=== PATIENT | male | born 1950 | race Caucasian/White ===

== ENCOUNTER 2017-03-20 11:10 | Observation (INO) | payer MEDICARE ==
[~2017-03-20] VITALS: Ht 182.9 cm; Wt 93.6 kg
[~2017-03-20 11:10] MED LIST: ASPI-1009 PO; ASPI-1265 PO; COLC0.6T66 PO; DIGO250T PO; ISOS30TA9 PO; METO-539 PO; OMEG1CAP54 PO; SOTA80TA69 PO; TICA90TA PO; VITA400T10 PO; [UNRECOGNIZED DRUG - CODE] PO
[2017-03-20] MEDS ORDERED: normal saline 1000ML IV soln IVB ONE (12:00)
[2017-03-20 12:12] LABS: BASOPHILS # (AUTO) 0.1 X10'3 (0-0.2); BASOPHILS % (AUTO) 0.9 % (0-1); EOSINOPHILS # (AUTO) 0.1 X10'3 (0-0.9); EOSINOPHILS % (AUTO) 1.5 % (0-6); HEMATOCRIT 49.3 % (42.0-52.0); HEMOGLOBIN 16.9 g/dl (14.0-17.9); LYMPHOCYTES # (AUTO) 2.9 X10'3 (1.1-4.8); LYMPHOCYTES % (AUTO) 36.6 % (21-51); MEAN CORPUSCULAR HEMOGLOBIN 32.7 PG (27.0-31.0); MEAN CORPUSCULAR HGB CONC 34.3 % (33.0-36.5); MEAN CORPUSCULAR VOLUME 95.1 FL (78-98); MEAN PLATELET VOLUME 8.9 FL (7.4-10.4); MONOCYTES # (AUTO) 0.8 X10'3 (0-0.9); MONOCYTES % (AUTO) 10.4 % (2-12); NEUTROPHILS % (AUTO) 50.6 % (42-75); PLATELET COUNT 236 X10'3 (140-440); RED BLOOD COUNT 5.18 X10'6 (4.70-6.10); RED CELL DISTRIBUTION WIDTH 13.8 % (11.5-14.5); WHITE BLOOD COUNT 7.9 X10'3 (4.5-11.0)
[2017-03-20 12:13] LABS: CLARITY,URINE Clear (Clear); COLOR,URINE Yellow (Yellow); GLUCOSE, URINE 500 mg/dl (Neg); KETONES,URINE Negative (Neg); LEUKOCYTE ESTERASE ,URINE Negative (Neg); NITRITES, URINE Negative (Neg); OCCULT BLOOD,URINE Negative (Neg); PROTEIN,URINE Negative (Neg); UA COLLECTION TYPE CLN CATCH MIDSTREAM; UROBILINOGEN,URINE 0.2 E.U/dL (0.2-1.0)
[2017-03-20 12:17] LABS: PARTIAL THROMBOPLASTIN TIME 26 SECONDS (22-32); PROTHROMBIN TIME 10.3 SECONDS (9.0-12.0)
[2017-03-20 12:29] LABS: ALANINE AMINOTRANSFERASE 92 U/L (12-78); ALBUMIN 4.1 G/DL (3.4-5.0); ALBUMIN/GLOBULIN RATIO 1.1 (1.1-1.5); ALKALINE PHOSPHATASE 58 IU/L (46-116); ANION GAP 14 (8-16); ASPARTATE AMINO TRANSFERASE 42 U/L (10-37); BILIRUBIN,TOTAL 1.3 MG/DL (0.1-1.0); BLOOD UREA NITROGEN 21 MG/DL (7-18); BUN/CREATININE RATIO 23.3 (5.4-32.0); CHLORIDE 103 MMOL/L (99-107); GLUCOSE 178 MG/DL (70-104); MAGNESIUM 1.9 MG/DL (1.5-2.4); SODIUM 138 MMOL/L (135-145); TOTAL CARBON DIOXIDE 21.4 MMOL/L (24-32); eGFR 85 ML/MIN
[2017-03-20 12:30] LABS: POTASSIUM 3.9 MMOL/L (3.5-5.1)
[2017-03-20 12:57] LABS: LIPASE 491 U/L (73-393)
[2017-03-20] MEDS ORDERED: glucagon, human recombinant 1mg kit SUBCUT PRN (14:50)
[2017-03-20] MEDS ORDERED: MESSAGE TO PHARMACY PO ONE (14:50)
[2017-03-20] MEDS ORDERED: dextrose 50%-water 50ml dispensing syringe IV PRN ×2 (14:50)
[2017-03-20] MEDS ORDERED: mag hydrox/Alum hydrox/simeth 30ml oral suspension PO PRN (14:50)
[2017-03-20] MEDS ORDERED: potassium Cl 40MEQ/NS 500ml 500 ML IV PRN ×2 (14:50)
[2017-03-20] MEDS ORDERED: magnesium 4gm in 100ml NS 100 ML IV PRN (14:50)
[2017-03-20] MEDS ORDERED: magnesium 2GM in 50ml NS 50 ML IV PRN (14:50)
[2017-03-20] MEDS ORDERED: magnesium hydroxide 30ml (MOM) UD suspension PO PRN (14:50)
[2017-03-20] MEDS ORDERED: acetaminophen 325mg tablet PO PRN (14:50)
[2017-03-20] MEDS ORDERED: insulin Lispro (HumaLOG) vial - multi-dose SQ SCH (14:50)
[2017-03-20] MEDS ORDERED: potassium Cl 20 mEq SR tablet PO PRN ×2 (14:50)
[2017-03-20] MEDS ORDERED: dextrose ORAL solution 15 GM/59 ML bottle PO PRN ×2 (14:50)
[2017-03-20] MEDS ORDERED: ondansetron/PF 4mg/2ml inj IV PRN (14:50)
[2017-03-20 16:55] VITALS: BP 134/91
[2017-03-20 19:00] VITALS: BP 118/72
[2017-03-20] MEDS ORDERED: ticagrelor 90mg tablet PO SCH (21:00)
[2017-03-20] MEDS ORDERED: allopurinol 100mg tablet PO SCH (21:00)
[2017-03-20] MEDS ORDERED: sotalol 80mg tablet PO SCH (21:00)
[2017-03-21] VITALS: BP 118/72
[2017-03-21] MEDS ORDERED: DIGO250T PO (00:54)
[2017-03-21] MEDS ORDERED: ALLO100T PO (00:54)
[2017-03-21] MEDS ORDERED: LOSA25TA96 PO (00:54)
[2017-03-21] MEDS ORDERED: METF500T PO (00:54)
[2017-03-21] MEDS ORDERED: LEVO50TA8 PO (00:54)
[2017-03-21 05:29] LABS: BASOPHILS % (AUTO) 0.5 % (0-1); EOSINOPHILS # (AUTO) 0.1 X10'3 (0-0.9); EOSINOPHILS % (AUTO) 1.7 % (0-6); HEMOGLOBIN 15.4 g/dl (14.0-17.9); LYMPHOCYTES # (AUTO) 3.3 X10'3 (1.1-4.8); LYMPHOCYTES % (AUTO) 40.8 % (21-51); MEAN CORPUSCULAR HEMOGLOBIN 33.3 PG (27.0-31.0); MEAN CORPUSCULAR HGB CONC 34.3 % (33.0-36.5); MEAN PLATELET VOLUME 8.8 FL (7.4-10.4); MONOCYTES # (AUTO) 0.8 X10'3 (0-0.9); MONOCYTES % (AUTO) 9.7 % (2-12); NEUTROPHILS # (AUTO) 3.8 X10'3 (1.8-7.7); NEUTROPHILS % (AUTO) 47.3 % (42-75); PLATELET COUNT 195 X10'3 (140-440); RED BLOOD COUNT 4.64 X10'6 (4.70-6.10); WHITE BLOOD COUNT 8.1 X10'3 (4.5-11.0)
[2017-03-21 06:26] LABS: ALBUMIN 3.5 G/DL (3.4-5.0); ANION GAP 12 (8-16); BLOOD UREA NITROGEN 20 MG/DL (7-18); CALCIUM 8.6 MG/DL (8.5-10.1); CHLORIDE 104 MMOL/L (99-107); GLUCOSE 154 MG/DL (70-104); MAGNESIUM 1.9 MG/DL (1.5-2.4); SODIUM 141 MMOL/L (135-145); TOTAL CARBON DIOXIDE 24.7 MMOL/L (24-32); eGFR 75 ML/MIN
[2017-03-21 06:34] LABS: POTASSIUM 3.6 MMOL/L (3.5-5.1)
[2017-03-21 07:00] VITALS: BP 124/85
[2017-03-21] MEDS ORDERED: enoxaparin 40mg/0.4ml syringe SUBCUT SCH (08:00)
[2017-03-21] MEDS ORDERED: K and/or MAG REPLACEMENT MC SCH (08:00)
[2017-03-21 11:21] VITALS: BP 123/75
[2017-03-21] MEDS ORDERED: metFORMIN 500mg tablet PO SCH (17:00)
[2017-03-21] MEDS ORDERED: sotalol 80mg tablet PO SCH (20:00)
[2017-03-21] MEDS ORDERED: allopurinol 100mg tablet PO SCH (20:00)
[2017-03-21] MEDS ORDERED: ticagrelor 90mg tablet PO SCH (20:00)
[2017-03-22] MEDS ORDERED: levoTHYROXINE 25mcg tablet PO SCH (07:00)
[2017-03-22] MEDS ORDERED: losartan 25mg tablet PO SCH (08:00)
[2017-03-22] MEDS ORDERED: vitamin E 400 unit capsule PO SCH (08:00)
[2017-03-22] MEDS ORDERED: digoxin 250mcg (0.25mg) tablet PO SCH (08:00)
[2017-03-22] MEDS ORDERED: aspirin 81mg tablet.DR PO SCH (08:00)
[2017-03-22] MEDS ORDERED: metoprolol succinate 25mg (24-HOUR) SR. Tablet PO SCH (08:00)
[2017-03-22] MEDS ORDERED: colchicine 0.6mg tablet PO SCH (08:00)
== END 2017-03-21 14:55 | disposition home or self-care (01) ==
LOC: ER 11:10 → INTOOBSV 14:47 → ED HOLD 14:47 → MED 3N 16:21
PROVIDERS: ADMIT Internal Medicine; ATTEND Internal Medicine
DX: R07.89 Other chest pain (principal); M10.9 Gout, unspecified; I10 Essential (primary) hypertension; R10.13 Epigastric pain; E11.9 Type 2 diabetes mellitus without complications; I25.709 Atherosclerosis of coronary artery bypass graft(s), unspecified, with unspecified angina pectoris; E78.00 Pure hypercholesterolemia, unspecified; M19.90 Unspecified osteoarthritis, unspecified site; I25.2 Old myocardial infarction; I48.0 Paroxysmal atrial fibrillation; E78.5 Hyperlipidemia, unspecified; Z95.5 Presence of coronary angioplasty implant and graft; Z82.49 Family history of ischemic heart disease and other diseases of the circulatory system
CPT/HCPCS: 36415; 71045; 76700; 80048; 80053; 80162; 81003; 82948; 83036; 83690; 83735; 83874; 83880; 84484; 85025; 85610; 85730; 87070; 93005; 93306; G0378; J7030; 96360; 99285

== ENCOUNTER 2017-04-26 14:28 | Inpatient (IN) | payer MEDICARE ==
[~2017-04-26] VITALS: Ht 185.4 cm; Wt 93.4 kg
[~2017-04-26 14:28] MED LIST changes: +ALLO100T PO; -ASPI-1265 PO; -ISOS30TA9 PO; +LEVO50TA8 PO; +LOSA25TA96 PO; +METF500T PO
[2017-04-26 15:19] LABS: BASOPHILS # (AUTO) 0.1 X10'3 (0-0.2); BASOPHILS % (AUTO) 0.7 % (0-1); EOSINOPHILS # (AUTO) 0.1 X10'3 (0-0.9); EOSINOPHILS % (AUTO) 1.5 % (0-6); HEMATOCRIT 44.3 % (42.0-52.0); HEMOGLOBIN 15.6 g/dl (14.0-17.9); LYMPHOCYTES % (AUTO) 38.6 % (21-51); MEAN CORPUSCULAR HEMOGLOBIN 33.5 PG (27.0-31.0); MEAN CORPUSCULAR HGB CONC 35.2 % (33.0-36.5); MEAN CORPUSCULAR VOLUME 95.1 FL (78-98); MONOCYTES # (AUTO) 0.8 X10'3 (0-0.9); NEUTROPHILS # (AUTO) 3.8 X10'3 (1.8-7.7); NEUTROPHILS % (AUTO) 49.2 % (42-75); PLATELET COUNT 212 X10'3 (140-440); RED BLOOD COUNT 4.66 X10'6 (4.70-6.10); RED CELL DISTRIBUTION WIDTH 14.4 % (11.5-14.5); WHITE BLOOD COUNT 7.8 X10'3 (4.5-11.0)
[2017-04-26 15:21] LABS: PARTIAL THROMBOPLASTIN TIME 26 SECONDS (22-32); PROTHROMBIN TIME 10.4 SECONDS (9.0-12.0)
[2017-04-26 15:24] LABS: CLARITY,URINE Clear (Clear); COLOR,URINE Yellow (Yellow); GLUCOSE, URINE Negative (Neg); KETONES,URINE Negative (Neg); LEUKOCYTE ESTERASE ,URINE Negative (Neg); NITRITES, URINE Negative (Neg); OCCULT BLOOD,URINE Negative (Neg); PH,URINE 6.5 (4.8-8.0); PROTEIN,URINE Negative (Neg); UROBILINOGEN,URINE 0.2 E.U/dL (0.2-1.0)
[2017-04-26 15:28] LABS: UA COLLECTION TYPE CLN CATCH MIDSTREAM
[2017-04-26 15:34] LABS: ALANINE AMINOTRANSFERASE 67 U/L (12-78); ALBUMIN 4.1 G/DL (3.4-5.0); ALBUMIN/GLOBULIN RATIO 1.2 (1.1-1.5); ALKALINE PHOSPHATASE 58 IU/L (46-116); ANION GAP 13 (8-16); BILIRUBIN,TOTAL 1.4 MG/DL (0.1-1.0); BLOOD UREA NITROGEN 19 MG/DL (7-18); CALCIUM 9.3 MG/DL (8.5-10.1); CHLORIDE 103 MMOL/L (99-107); SODIUM 140 MMOL/L (135-145); TOTAL CARBON DIOXIDE 23.8 MMOL/L (24-32); TOTAL PROTEIN 7.6 G/DL (6.4-8.2); eGFR 75 ML/MIN
[2017-04-26 15:37] LABS: GLUCOSE 121 MG/DL (70-104); POTASSIUM 3.8 MMOL/L (3.5-5.1)
[2017-04-26 15:44] LABS: ASPARTATE AMINO TRANSFERASE 26 U/L (10-37)
[2017-04-26] MEDS ORDERED: temazepam 15mg capsule PO PRN (21:00)
[2017-04-26] MEDS ORDERED: normal saline 1000ml 1,000 ML IV SCH (21:03)
[2017-04-26] MEDS ORDERED: metoclopramide 5 mg/ml inj IV PRN (21:05)
[2017-04-26] MEDS ORDERED: magnesium hydroxide 30ml (MOM) UD suspension PO PRN (21:05)
[2017-04-26] MEDS ORDERED: morphine 2 MG/ML inj. syringe IV PRN ×2 (21:05)
[2017-04-26] MEDS ORDERED: acetaminophen 650mg rectal suppository RC PRN (21:05)
[2017-04-26] MEDS ORDERED: diphenhydrAMINE 25mg capsule PO PRN (21:05)
[2017-04-26] MEDS ORDERED: bisacodyl 10mg suppository rectal RC PRN (21:05)
[2017-04-26] MEDS ORDERED: diphenhydrAMINE 50 mg/ml inj IV PRN (21:05)
[2017-04-26] MEDS ORDERED: HYDROmorphone inj. 0.5 MG/0.5 ML DISP.SYRIN IV PRN ×2 (21:05)
[2017-04-26] MEDS ORDERED: ondansetron/PF 4mg/2ml inj IV PRN (21:05)
[2017-04-26] MEDS ORDERED: HYDROcodone/acetaminophen 5mg/325mg tablet PO PRN (21:05)
[2017-04-26] MEDS ORDERED: acetaminophen 325mg tablet PO PRN ×2 (21:05)
[2017-04-26] MEDS ORDERED: mag hydrox/Alum hydrox/simeth 30ml oral suspension PO PRN (21:05)
[2017-04-26] MEDS ORDERED: HYDROcodone/acetaminophen 10/325mg tab PO PRN (21:05)
[2017-04-26] MEDS ORDERED: MESSAGE TO PHARMACY PO ONE (21:10)
[2017-04-26] MEDS ORDERED: insulin Lispro (HumaLOG) vial - multi-dose SQ SCH (21:10)
[2017-04-26] MEDS ORDERED: nitroGLYCERIN 0.4mg SUBLingual tab SL PRN (21:10)
[2017-04-26] MEDS ORDERED: aminophylline 250mg/10ml inj. IV PRN (21:10)
[2017-04-26] MEDS ORDERED: metoprolol tartrate 1mg/ml inj IV PRN (21:10)
[2017-04-26] MEDS ORDERED: regadenoson 0.4mg/5ml syringe IV PRN (21:10)
[2017-04-26] MEDS ORDERED: glucagon, human recombinant 1mg kit SUBCUT PRN (21:10)
[2017-04-26] MEDS ORDERED: dextrose 50%-water 50ml dispensing syringe IV PRN ×2 (21:10)
[2017-04-26] MEDS ORDERED: dextrose ORAL solution 15 GM/59 ML bottle PO PRN ×2 (21:10)
[2017-04-26 21:33] LABS: PARTIAL THROMBOPLASTIN TIME 26 SECONDS (22-32); PROTHROMBIN TIME 10.6 SECONDS (9.0-12.0)
[2017-04-26 21:35] LABS: PHOSPHORUS 4.3 MG/DL (2.3-4.5)
[2017-04-27] VITALS (9 sets, daily range): BP systolic 110–142; BP diastolic 53–81
[2017-04-27 03:05] LABS: ALANINE AMINOTRANSFERASE 70 U/L (12-78); ALBUMIN 3.8 G/DL (3.4-5.0); ALBUMIN/GLOBULIN RATIO 1.2 (1.1-1.5); ALKALINE PHOSPHATASE 52 IU/L (46-116); ANION GAP 8 (8-16); ASPARTATE AMINO TRANSFERASE 27 U/L (10-37); BILIRUBIN,TOTAL 1.1 MG/DL (0.1-1.0); BLOOD UREA NITROGEN 18 MG/DL (7-18); BUN/CREATININE RATIO 16.1 (5.4-32.0); CALCIUM 9.3 MG/DL (8.5-10.1); CHLORIDE 103 MMOL/L (99-107); CREATININE 1.12 MG/DL (0.60-1.10); GLUCOSE 151 MG/DL (70-104); POTASSIUM 3.6 MMOL/L (3.5-5.1); SODIUM 141 MMOL/L (135-145); TOTAL CARBON DIOXIDE 29.6 MMOL/L (24-32); eGFR 66 ML/MIN
[2017-04-27] MEDS: FAMCICLOVIR 500 MG PO SCH (08:00)
[2017-04-27] MEDS ORDERED: losartan 25mg tablet PO SCH (08:00)
[2017-04-27] MEDS ORDERED: metoprolol succinate 25mg (24-HOUR) SR. Tablet PO SCH (08:00)
[2017-04-27] MEDS ORDERED: aspirin 81mg tablet.DR PO SCH (08:00)
[2017-04-27] MEDS ORDERED: sotalol 80mg tablet PO SCH (08:00)
[2017-04-27] MEDS ORDERED: ticagrelor 90mg tablet PO SCH (08:00)
[2017-04-27] MEDS: levoTHYROXINE 25mcg tablet PO SCH (08:21)
[2017-04-27] MEDS: docusate sod 100mg capsule PO SCH ×2 (08:22→21:42)
[2017-04-27] MEDS: colchicine 0.6mg tablet PO SCH (08:25)
[2017-04-27] MEDS: allopurinol 100mg tablet PO SCH ×2 (08:26→21:41)
[2017-04-27] MEDS ORDERED: iohexol 350 MG/ML 50ML vial IV ONE (16:07)
[2017-04-27] MEDS ORDERED: fentaNYL/PF 50MCG/1 ML 2ML syringe ONE (16:07)
[2017-04-27] MEDS ORDERED: midazolam 2 mg/2 ml injection ONE (16:07)
[2017-04-27] MEDS ORDERED: iohexol 350 MG/1 ML 200ml bottle ONE (16:07)
[2017-04-27] MEDS ORDERED: nitroGLYCERIN-Tridil 50MG/D5W 250 ML IV ONE (16:07)
[2017-04-27] MEDS ORDERED: LIDOcaine 1%/PF (10mg/ml) 5ml vial ONE ×3 (16:07→17:05)
[2017-04-27] MEDS ORDERED: heparin 1,000unit/ml 10ml vial 10 ML ONE (16:07)
[2017-04-27] MEDS ORDERED: HYDROmorphone inj. 0.5 MG/0.5 ML DISP.SYRIN ONE (17:37)
[2017-04-27] MEDS ORDERED: DOPamine 400mg/D5W 250ml 250 ML IV ONE (17:49)
[2017-04-27] MEDS ORDERED: iohexol 350MG/ML 100ml bottle IV ONE (18:07)
[2017-04-27] MEDS ORDERED: ticagrelor 90mg tablet ONE (18:14)
[2017-04-27] MEDS ORDERED: tirofiban 5mg in NS 100mL 100 ML IV ONE (18:17)
[2017-04-27] MEDS ORDERED: DOPamine 400MG/D5W 250ML CRITICAL CARE IV SCH (19:50)
[2017-04-27] MEDS ORDERED: aspirin 81mg tab.chew PO ONE (19:50)
[2017-04-27] MEDS ORDERED: OXAZEpam 15mg capsule PO PRN (19:55)
[2017-04-27] MEDS ORDERED: cyclobenzaprine 10mg tablet PO PRN (19:55)
[2017-04-27] MEDS ORDERED: acetaminophen 325mg tablet PO PRN (20:00)
[2017-04-27] MEDS ORDERED: OMEGA-3/DHA/EPA/FISH OIL 1 EACH CAPSULE.DR PO SCH (20:00)
[2017-04-27] MEDS: tirofiban 5mg in NS 100mL 100 ML IV SCH (21:43)
[2017-04-28] VITALS (18 sets, daily range): BP systolic 86–147; BP diastolic 53–92
[2017-04-28 01:18] LABS: ALANINE AMINOTRANSFERASE 63 U/L (12-78); ALBUMIN 3.5 G/DL (3.4-5.0); ALBUMIN/GLOBULIN RATIO 1.1 (1.1-1.5); ALKALINE PHOSPHATASE 47 IU/L (46-116); ANION GAP 13 (8-16); ASPARTATE AMINO TRANSFERASE 23 U/L (10-37); BILIRUBIN,TOTAL 1.5 MG/DL (0.1-1.0); BLOOD UREA NITROGEN 17 MG/DL (7-18); CALCIUM 8.4 MG/DL (8.5-10.1); CHLORIDE 104 MMOL/L (99-107); CREATININE 0.81 MG/DL (0.60-1.10); GLUCOSE 202 MG/DL (70-104); POTASSIUM 3.2 MMOL/L (3.5-5.1); SODIUM 140 MMOL/L (135-145); TOTAL CARBON DIOXIDE 23.1 MMOL/L (24-32); TOTAL PROTEIN 6.7 G/DL (6.4-8.2); eGFR > 90 ML/MIN
[2017-04-28] MEDS ORDERED: morphine 4 MG/ML inj SYRINge ONE (03:24)
[2017-04-28] MEDS: tirofiban 5mg in NS 100mL 100 ML IV SCH ×2 (03:38→07:02)
[2017-04-28 05:36] LABS: BASOPHILS % (AUTO) 0.3 % (0-1); EOSINOPHILS # (AUTO) 0.2 X10'3 (0-0.9); EOSINOPHILS % (AUTO) 1.4 % (0-6); HEMATOCRIT 39.1 % (42.0-52.0); HEMOGLOBIN 13.9 g/dl (14.0-17.9); LYMPHOCYTES # (AUTO) 2.3 X10'3 (1.1-4.8); LYMPHOCYTES % (AUTO) 20.2 % (21-51); MEAN CORPUSCULAR HEMOGLOBIN 34.1 PG (27.0-31.0); MEAN CORPUSCULAR HGB CONC 35.7 % (33.0-36.5); MEAN CORPUSCULAR VOLUME 95.5 FL (78-98); MONOCYTES % (AUTO) 8.7 % (2-12); NEUTROPHILS # (AUTO) 7.8 X10'3 (1.8-7.7); NEUTROPHILS % (AUTO) 69.4 % (42-75); PLATELET COUNT 190 X10'3 (140-440); RED BLOOD COUNT 4.09 X10'6 (4.70-6.10); RED CELL DISTRIBUTION WIDTH 14.8 % (11.5-14.5); WHITE BLOOD COUNT 11.2 X10'3 (4.5-11.0)
[2017-04-28] MEDS ORDERED: levoTHYROXINE 25mcg tablet PO SCH (07:00)
[2017-04-28] MEDS ORDERED: metoprolol succinate 25mg (24-HOUR) SR. Tablet PO SCH (08:00)
[2017-04-28] MEDS ORDERED: sotalol 80mg tablet PO SCH (08:00)
[2017-04-28] MEDS ORDERED: losartan 25mg tablet PO SCH (08:00)
[2017-04-28] MEDS ORDERED: digoxin 250mcg (0.25mg) tablet PO SCH (08:00)
[2017-04-28] MEDS ORDERED: ticagrelor 90mg tablet PO SCH (08:00)
[2017-04-28] MEDS: docusate sod 100mg capsule PO SCH (08:09)
[2017-04-28] MEDS: colchicine 0.6mg tablet PO SCH (08:10)
[2017-04-28] MEDS: allopurinol 100mg tablet PO SCH (08:12)
[2017-04-28] MEDS: levoTHYROXINE 25mcg tablet PO SCH (08:16)
[2017-04-28] MEDS ORDERED: aspirin 81mg tab.chew PO SCH (08:30)
[2017-04-28] MEDS: FAMCICLOVIR 500 MG PO SCH (09:40)
[2017-04-28] MEDS ORDERED: potassium Cl 20 mEq SR tablet PO ONE (13:40)
[2017-04-30] MEDS ORDERED: metFORMIN 500mg tablet PO SCH (07:00)
== END 2017-04-28 14:00 | disposition home or self-care (01) | DRG 251 ==
LOC: ER 14:29 → ED HOLD 21:03 → CMPBEDREQ 04-27 19:44 → EDBEDREQSVC 04-27 19:44 → ICU 2S 04-27 20:22 → CICU 2S 04-28 06:08
PROVIDERS: ADMIT Family Medicine; ATTEND Internal Medicine
PROC: 4A023N7 Measurement of Cardiac Sampling and Pressure, Left Heart, Percutaneous Approach (ICD-10-PCS; principal; 2017-04-27)
PROC: 02713ZZ Dilation of Coronary Artery, Two Arteries, Percutaneous Approach (ICD-10-PCS; 2017-04-27)
PROC: B2111ZZ Fluoroscopy of Multiple Coronary Arteries using Low Osmolar Contrast (ICD-10-PCS; 2017-04-27)
PROC: B2151ZZ Fluoroscopy of Left Heart using Low Osmolar Contrast (ICD-10-PCS; 2017-04-27)
PROC: B2131ZZ Fluoroscopy of Multiple Coronary Artery Bypass Grafts using Low Osmolar Contrast (ICD-10-PCS; 2017-04-27)
DX: T82.855A Stenosis of coronary artery stent, initial encounter (principal); I11.0 Hypertensive heart disease with heart failure; I48.0 Paroxysmal atrial fibrillation; E11.65 Type 2 diabetes mellitus with hyperglycemia; I50.30 Unspecified diastolic (congestive) heart failure; K21.9 Gastro-esophageal reflux disease without esophagitis; M19.90 Unspecified osteoarthritis, unspecified site; I25.119 Atherosclerotic heart disease of native coronary artery with unspecified angina pectoris; N52.9 Male erectile dysfunction, unspecified; M10.9 Gout, unspecified; R00.1 Bradycardia, unspecified; E78.5 Hyperlipidemia, unspecified; E78.00 Pure hypercholesterolemia, unspecified; Y83.1 Surgical operation with implant of artificial internal device as the cause of abnormal reaction of the patient, or of later complication, without mention of misadventure at the time of the procedure; I25.2 Old myocardial infarction; Z95.1 Presence of aortocoronary bypass graft; Z79.82 Long term (current) use of aspirin; Z79.899 Other long term (current) drug therapy; Z88.8 Allergy status to other drugs, medicaments and biological substances
CPT/HCPCS: 36415; 71045; 80053; 80162; 81003; 82948; 83735; 83880; 84100; 84484; 85025; 85347; 85610; 85730; 87070; 92920; 92921; 93005; 93458; 99152; 99153; 99285; A4620; A6213; A6257; A6449; C1725; C1769; J1170; J1265; J1644; J2001; J2250; J2270; J2405; J3010; J3246; J3490; J7030; Q9967

== ENCOUNTER 2018-05-11 10:47 | Day surgery (SDC) | payer MEDICARE ==
[2018-05-10 15:56] LABS: BASOPHILS # (AUTO) 0.1 X10'3 (0-0.2); EOSINOPHILS # (AUTO) 0.1 X10'3 (0-0.9); EOSINOPHILS % (AUTO) 1.4 % (0-6); HEMOGLOBIN 15.2 g/dl (14.0-17.9); LYMPHOCYTES # (AUTO) 3.1 X10'3 (1.1-4.8); LYMPHOCYTES % (AUTO) 38.4 % (21-51); MEAN CORPUSCULAR HEMOGLOBIN 33.2 PG (27.0-31.0); MEAN CORPUSCULAR HGB CONC 34.6 g/dL (33.0-36.5); MEAN CORPUSCULAR VOLUME 96.1 FL (78-98); MEAN PLATELET VOLUME 8.9 FL (7.4-10.4); MONOCYTES # (AUTO) 0.8 X10'3 (0-0.9); MONOCYTES % (AUTO) 9.9 % (2-12); NEUTROPHILS % (AUTO) 49.3 % (42-75); PLATELET COUNT 219 X10'3 (140-440); RED BLOOD COUNT 4.58 X10'6 (4.70-6.10); RED CELL DISTRIBUTION WIDTH 13.7 % (11.5-14.5); WHITE BLOOD COUNT 8.2 X10'3 (4.5-11.0)
[2018-05-10 15:58] LABS: ALBUMIN 3.8 G/DL (3.4-5.0); ANION GAP 8 (8-16); BLOOD UREA NITROGEN 13 MG/DL (7-18); BUN/CREATININE RATIO 12.6 (5.4-32.0); CALCIUM 8.8 MG/DL (8.5-10.1); CHLORIDE 104 MMOL/L (99-107); CREATININE 1.03 MG/DL (0.60-1.10); PARTIAL THROMBOPLASTIN TIME 26 SECONDS (22-32); PROTHROMBIN TIME 10.2 SECONDS (9.0-12.0); SODIUM 138 MMOL/L (135-145); TOTAL CARBON DIOXIDE 25.9 MMOL/L (24-32); eGFR 72 ML/MIN
[2018-05-10 16:04] LABS: GLUCOSE 184 MG/DL (70-104); POTASSIUM 3.8 MMOL/L (3.5-5.1)
[~2018-05-11] VITALS: Ht 185.4 cm; Wt 92.6 kg
[2018-05-11] VITALS (16 sets, daily range): BP systolic 117–145; BP diastolic 71–97
[~2018-05-11 10:47] MED LIST changes: -METF500T PO; -SOTA80TA69 PO; +SOTA80TA73 PO
[2018-05-11] MEDS ORDERED: diphenhydrAMINE 25mg capsule PO PRN (11:20)
[2018-05-11] MEDS ORDERED: LORazepam 0.5 MG tablet PO PRN (11:20)
[2018-05-11] MEDS ORDERED: normal saline 1000ml 1,000 ML IV SCH (11:20)
[2018-05-11] MEDS ORDERED: EZET10TA14 PO (11:54)
[2018-05-11] MEDS ORDERED: ASPI-41 PO (11:54)
[2018-05-11] MEDS ORDERED: ISOS30TA9 PO (11:54)
[2018-05-11] MEDS ORDERED: ALIR75PE INJ (11:54)
[2018-05-11] MEDS ORDERED: METF500T PO (11:54)
[2018-05-11] MEDS ORDERED: nitroGLYCERIN-Tridil 50MG/D5W 250 ML IV ONE (15:39)
[2018-05-11] MEDS ORDERED: midazolam 2 mg/2 ml injection ONE ×2 (15:39→17:15)
[2018-05-11] MEDS ORDERED: LIDOcaine 1% (10mg/ml)w/preservative injection 20ml MDV ONE (15:40)
[2018-05-11] MEDS ORDERED: iohexol 350MG/ML 100ml bottle IV ONE ×3 (15:40→17:40)
[2018-05-11] MEDS ORDERED: fentaNYL/PF 50MCG/1 ML 2ML syringe ONE ×2 (15:40→17:15)
[2018-05-11] MEDS ORDERED: iohexol 350 MG/ML 50ML vial IV ONE (15:40)
[2018-05-11] MEDS ORDERED: heparin 1,000unit/ml 10ml vial 10 ML ONE ×2 (15:40→17:59)
[2018-05-11] MEDS ORDERED: verapamil 2.5 mg/ml inj IV ONE (16:17)
[2018-05-11] MEDS ORDERED: heparin 25,000 UNIT/250ml bag 250 ML IV ONE (16:54)
[2018-05-11] MEDS ORDERED: heparin 1,000 UNITS/NS 500ml 500 ML ONE (16:55)
[2018-05-11] MEDS ORDERED: ticagrelor 90mg tablet ONE (17:51)
[2018-05-11] MEDS ORDERED: proCHLORperazine 10 MG/2 ml inj IV PRN (19:05)
[2018-05-11] MEDS ORDERED: acetaminophen 325mg tablet PO PRN ×2 (19:05→19:10)
[2018-05-11] MEDS ORDERED: cyclobenzaprine 10mg tablet PO PRN (19:10)
[2018-05-11] MEDS ORDERED: HYDROcodone/acetaminophen 10/325mg tab PO PRN ×2 (19:10)
[2018-05-11] MEDS ORDERED: normal saline 1000ml 1,000 ML IV ONE (19:10)
[2018-05-11] MEDS ORDERED: OXAZEpam 15mg capsule PO PRN (19:10)
[2018-05-11] MEDS ORDERED: TICA90TA PO (19:15)
[2018-05-11] MEDS: ticagrelor 90mg tablet PO SCH (19:39)
[2018-05-11] MEDS: docusate sod 100mg capsule PO SCH (19:39)
[2018-05-11] MEDS ORDERED: magnesium hydroxide 30ml (MOM) UD suspension PO SCH (21:00)
[2018-05-12] VITALS: BP 111/77
[2018-05-12 01:00] VITALS: BP 103/68
[2018-05-12 02:00] VITALS: BP 101/67
[2018-05-12 03:00] VITALS: BP 112/72
[2018-05-12 04:00] VITALS: BP 109/73
[2018-05-12 05:25] LABS: BASOPHILS % (AUTO) 0.6 % (0-1); EOSINOPHILS # (AUTO) 0.1 X10'3 (0-0.9); EOSINOPHILS % (AUTO) 1.2 % (0-6); HEMATOCRIT 40.9 % (42.0-52.0); HEMOGLOBIN 14.5 g/dl (14.0-17.9); LYMPHOCYTES # (AUTO) 2.7 X10'3 (1.1-4.8); LYMPHOCYTES % (AUTO) 32.5 % (21-51); MEAN CORPUSCULAR HEMOGLOBIN 33.9 PG (27.0-31.0); MEAN CORPUSCULAR HGB CONC 35.4 g/dL (33.0-36.5); MEAN CORPUSCULAR VOLUME 95.7 FL (78-98); MEAN PLATELET VOLUME 8.7 FL (7.4-10.4); MONOCYTES # (AUTO) 0.9 X10'3 (0-0.9); MONOCYTES % (AUTO) 11.2 % (2-12); NEUTROPHILS # (AUTO) 4.6 X10'3 (1.8-7.7); NEUTROPHILS % (AUTO) 54.5 % (42-75); PLATELET COUNT 201 X10'3 (140-440); RED BLOOD COUNT 4.28 X10'6 (4.70-6.10); RED CELL DISTRIBUTION WIDTH 14.3 % (11.5-14.5); WHITE BLOOD COUNT 8.4 X10'3 (4.5-11.0)
[2018-05-12 05:50] LABS: ALBUMIN 3.4 G/DL (3.4-5.0); ANION GAP 10 (8-16); BLOOD UREA NITROGEN 12 MG/DL (7-18); BUN/CREATININE RATIO 13.3 (5.4-32.0); CALCIUM 8.3 MG/DL (8.5-10.1); CHLORIDE 104 MMOL/L (99-107); CHOL/HDL RATIO 7.6 (0.00-4.99); CHOLESTEROL 198 MG/DL (0-200); HDL CHOLESTEROL 26 MG/DL (35-60); LDL CHOLESTEROL 67 MG/DL (50-100); SODIUM 141 MMOL/L (135-145); TOTAL CARBON DIOXIDE 26.7 MMOL/L (24-32); eGFR 84 ML/MIN
[2018-05-12 05:57] LABS: GLUCOSE 157 MG/DL (70-104); POTASSIUM 3.7 MMOL/L (3.5-5.1); TRIGLYCERIDES 1206 MG/DL (20-135)
--- NOTE | 2018-05-12 06:05 | NUR ---
Patient in room MED 315. I have received report from REBEKAH MEJIA and had the opportunity to ask questions and assume patient care.
[2018-05-12] MEDS ORDERED: isosorbide dinitrate 30mg tablet PO PRN (07:00)
[2018-05-12] MEDS ORDERED: levoTHYROXINE 25mcg tablet PO SCH (07:13)
[2018-05-12] MEDS ORDERED: METF500T PO (07:28)
--- NOTE | 2018-05-12 07:39 | NUR ---
PATIENT WILL MAKE OWN DISCHARGE FOLLOW UP APPOINTMENT Addendum: 05/12/18 at 0740 by Stacy Dailey RN Amended: Links added.
[2018-05-12 08:00] VITALS: BP 120/77
[2018-05-12] MEDS ORDERED: metoprolol succinate 25mg (24-HOUR) SR. Tablet PO SCH (08:00)
[2018-05-12] MEDS ORDERED: ALIROCUMAB 75 MG SQ SCH (08:00)
[2018-05-12] MEDS: docusate sod 100mg capsule PO SCH (08:00)
[2018-05-12] MEDS ORDERED: sotalol 80mg tablet PO SCH (08:00)
[2018-05-12] MEDS ORDERED: ticagrelor 90mg tablet PO SCH (08:00)
[2018-05-12] MEDS ORDERED: digoxin 250mcg (0.25mg) tablet PO SCH (08:00)
[2018-05-12] MEDS ORDERED: aspirin 325mg tablet, delayed-release (Ecotrin) PO SCH (08:00)
[2018-05-12] MEDS ORDERED: allopurinol 100mg tablet PO SCH (08:00)
[2018-05-12] MEDS ORDERED: losartan 25mg tablet PO SCH (08:00)
[2018-05-12] MEDS ORDERED: colchicine 0.6mg tablet PO SCH (08:00)
[2018-05-12] MEDS ORDERED: vitamin E 400 unit capsule PO SCH (08:00)
[2018-05-12] MEDS ORDERED: FAMCICLOVIR 500 MG PO SCH (08:00)
[2018-05-12] MEDS ORDERED: ezetimibe 10mg tablet PO SCH (08:00)
[2018-05-12] MEDS: ticagrelor 90mg tablet PO SCH (08:04)
[2018-05-12] MEDS ORDERED: aspirin 81mg tab.chew PO SCH (08:30)
--- NOTE | 2018-05-12 08:30 | NUR ---
PATIENT DISCHARGED. INSTRUCTIONS GIVEN TO PATIENT INCLUDING MEDICATIONS, FOLLOW UP APPOINTMENTS AND POST CARDIAC CATHETERIZATION CARE. PATIENT VERBALIZED UNDERSTANDING. NO NEW MEDICATIONS PRESCRIBED, PATIENT STATED NO REFILLS NEEDED ON ANY MEDICATIONS AT THIS TIME. IV REMOVED FROM LFA TIP INTACT, HEMOSTASIS ACHIEVED AND DRESSIGN APPLIED. PATIENT INSTRUCTED NOT TO SHOWER UNTIL TONIGHT. PATIENT ABLE TO WALK SELF TO LOBBY TO WAIT FOR , HIS RIDE HOME.
[2018-05-13] MEDS ORDERED: metFORMIN 500mg tablet PO SCH (20:00)
== END 2018-05-12 08:30 | disposition home or self-care (01) ==
LOC: SSTAY O 10:47 → MED 3N 19:00 → SSTAY O 05-12 08:30
PROVIDERS: ATTEND Internal Medicine Cardiovascular Disease
DX: I25.10 Atherosclerotic heart disease of native coronary artery without angina pectoris (principal); E11.9 Type 2 diabetes mellitus without complications; I10 Essential (primary) hypertension; E78.5 Hyperlipidemia, unspecified; Z95.1 Presence of aortocoronary bypass graft; Z79.84 Long term (current) use of oral hypoglycemic drugs
CPT/HCPCS: 36415; 80048; 80061; 82948; 85025; 85347; 85610; 85730; 92920; 93005; 93459; 99152; 99153; A6257; J1644; J2001; J2250; J3010; J7030; Q0163; Q9967; A4620; C1725; C1769; G0378; J3490

== ENCOUNTER 2018-11-21 18:18 | Inpatient (IN) | payer MEDICARE ==
[~2018-11-21] VITALS: Ht 182.9 cm; Wt 91.9 kg
[~2018-11-21 18:18] MED LIST changes: +ALIR75PE INJ; -ASPI-1009 PO; +ASPI-41 PO; +EZET10TA21 PO; +ISOS30TA9 PO; +LIDOcaine 2% (20 mg/ml) 5ml cardiac syringe ONE; +MAGNESIUM SULFATE 4 MEQ/ML (5gm/10ml) injection ONE; +METF500T PO; -OMEG1CAP54 PO; +albumin (human) 25% 100 ML IV solution IV ONE; +aminocaproic acid 250 MG/1 ML inj. ONE; +calcium chloride 100 MG/1 ML inj IV ONE; +heparin 1,000 units/ml 10ml inj ONE; +heparin 10,000 units/1 ML INJ ONE; +methylPREDNISolone sod. succ. 500mg inj ONE; +phenylephrine 10mg/ml inj. ONE; +potassium Cl 2 mEq/ml inj IV ONE; +sodium bicarbonate (8.4%) 1 mEq/ml syringe ONE
[2018-11-21 18:48] LABS: BASOPHILS # (AUTO) 0.1 X10'3 (0-0.2); BASOPHILS % (AUTO) 0.8 % (0-1); EOSINOPHILS # (AUTO) 0.1 X10'3 (0-0.9); EOSINOPHILS % (AUTO) 1.1 % (0-6); HEMATOCRIT 42.8 % (42.0-52.0); LYMPHOCYTES # (AUTO) 3.6 X10'3 (1.1-4.8); LYMPHOCYTES % (AUTO) 44.7 % (21-51); MEAN CORPUSCULAR HEMOGLOBIN 33.6 PG (27.0-31.0); MEAN CORPUSCULAR HGB CONC 35.1 g/dL (33.0-36.5); MEAN CORPUSCULAR VOLUME 95.7 FL (78-98); MEAN PLATELET VOLUME 8.6 FL (7.4-10.4); MONOCYTES # (AUTO) 0.9 X10'3 (0-0.9); MONOCYTES % (AUTO) 10.7 % (2-12); NEUTROPHILS # (AUTO) 3.4 X10'3 (1.8-7.7); NEUTROPHILS % (AUTO) 42.7 % (42-75); PLATELET COUNT 234 X10'3 (140-440); RED BLOOD COUNT 4.48 X10'6 (4.70-6.10); RED CELL DISTRIBUTION WIDTH 13.5 % (11.5-14.5)
[2018-11-21 18:57] LABS: PARTIAL THROMBOPLASTIN TIME 26 SECONDS (22-32)
[2018-11-21 18:58] LABS: ALBUMIN/GLOBULIN RATIO 1.2 (1.1-1.5); ALKALINE PHOSPHATASE 63 IU/L (46-116); ANION GAP 12 (8-16); BILIRUBIN,TOTAL 0.9 MG/DL (0.1-1.0); BLOOD UREA NITROGEN 18 MG/DL (7-18); BUN/CREATININE RATIO 17.3 (5.4-32.0); CALCIUM 8.8 MG/DL (8.5-10.1); CHLORIDE 103 MMOL/L (99-107); CREATININE 1.04 MG/DL (0.60-1.10); GLUCOSE 209 MG/DL (70-104); POTASSIUM 3.8 MMOL/L (3.5-5.1); SODIUM 139 MMOL/L (135-145); TOTAL CARBON DIOXIDE 24.2 MMOL/L (24-32); TOTAL PROTEIN 7.4 G/DL (6.4-8.2); eGFR 71 ML/MIN
[2018-11-21] MEDS ORDERED: nitroGLYCERIN 0.4mg SUBLingual tab SL PRN (19:00)
[2018-11-21] MEDS ORDERED: ondansetron/PF 4mg/2ml inj IV ONE (19:00)
[2018-11-21] MEDS ORDERED: morphine 4 MG/ML inj SYRINge IV ONE (19:00)
[2018-11-21 19:18] LABS: ALANINE AMINOTRANSFERASE 41 U/L (12-78); ASPARTATE AMINO TRANSFERASE 17 U/L (10-37)
[2018-11-21] MEDS ORDERED: magnesium hydroxide 30ml (MOM) UD suspension PO PRN (21:05)
[2018-11-21] MEDS ORDERED: mag hydrox/Alum hydrox/simeth 30ml oral suspension PO PRN (21:05)
[2018-11-21] MEDS ORDERED: morphine 2 MG/ML inj. syringe IV PRN ×2 (21:05)
[2018-11-21] MEDS ORDERED: ondansetron/PF 4mg/2ml inj IV PRN (21:05)
[2018-11-21] MEDS ORDERED: heparin 25,000 UNIT/250ml bag 250 ML IV SCH (21:12)
[2018-11-21] MEDS ORDERED: heparin 10,000 units/1 ML INJ IV PRN (21:15)
[2018-11-21] MEDS ORDERED: heparin 10,000 units/1 ML INJ IV ONE (21:15)
[2018-11-21] MEDS ORDERED: isosorbide dinitrate 30mg tablet PO PRN (21:15)
[2018-11-21] MEDS ORDERED: MESSAGE TO PHARMACY PO ONE (21:20)
[2018-11-21] MEDS ORDERED: dextrose ORAL solution 15 GM/59 ML bottle PO PRN ×2 (21:20)
[2018-11-21] MEDS ORDERED: insulin Lispro (HumaLOG) vial - multi-dose SQ SCH (21:20)
[2018-11-21] MEDS ORDERED: glucagon, human recombinant 1mg kit SUBCUT PRN (21:20)
[2018-11-21] MEDS ORDERED: dextrose 50%-water 50ml dispensing syringe IV PRN ×2 (21:20)
--- NOTE | 2018-11-21 21:49 | NUR ---
Per Patient he would rather not have the Heparin drip started, his right knee bleeds internally and swells every time he is started on the drug. I advised Dr. Whitney and he said not to start Heparin and he will re-eval.
[2018-11-21 21:50] LABS: HEMOGLOBIN A1C 6.7 % (4.5-6.2)
[2018-11-21 22:15] LABS: BASOPHILS # (AUTO) 0.1 X10'3 (0-0.2); BASOPHILS % (AUTO) 0.9 % (0-1); EOSINOPHILS # (AUTO) 0.1 X10'3 (0-0.9); EOSINOPHILS % (AUTO) 1.1 % (0-6); HEMATOCRIT 41.4 % (42.0-52.0); HEMOGLOBIN 14.5 g/dl (14.0-17.9); LYMPHOCYTES # (AUTO) 3.7 X10'3 (1.1-4.8); LYMPHOCYTES % (AUTO) 47.5 % (21-51); MEAN CORPUSCULAR HEMOGLOBIN 33.5 PG (27.0-31.0); MEAN CORPUSCULAR HGB CONC 35.1 g/dL (33.0-36.5); MEAN CORPUSCULAR VOLUME 95.5 FL (78-98); MEAN PLATELET VOLUME 8.4 FL (7.4-10.4); MONOCYTES % (AUTO) 12.4 % (2-12); NEUTROPHILS # (AUTO) 2.9 X10'3 (1.8-7.7); NEUTROPHILS % (AUTO) 38.1 % (42-75); PLATELET COUNT 210 X10'3 (140-440); RED BLOOD COUNT 4.34 X10'6 (4.70-6.10); RED CELL DISTRIBUTION WIDTH 13.9 % (11.5-14.5); WHITE BLOOD COUNT 7.7 X10'3 (4.5-11.0)
--- NOTE | 2018-11-21 22:50 | NUR ---
Patient in room PCU 3026. I have received report from Viviane WELCH and had the opportunity to ask questions and assume patient care with Nichelle WELCH
[2018-11-21 23:00] VITALS: BP 125/77
--- NOTE | 2018-11-21 23:13 | NUR ---
pt arrived to floor via [place]ney, ambulated to bed. no complaints or signs of distress noted. oriented to unit.
[2018-11-21] MEDS ORDERED: allopurinol 100mg tablet PO ONE (23:35)
[2018-11-21] MEDS ORDERED: ticagrelor 90mg tablet PO ONE (23:35)
[2018-11-22] VITALS (15 sets, daily range): BP systolic 116–148; BP diastolic 71–92
[2018-11-22] MEDS: colchicine 0.6mg tablet PO SCH ×2 (00:26→21:10)
[2018-11-22 06:22] LABS: BASOPHILS % (AUTO) 0.6 % (0-1); EOSINOPHILS # (AUTO) 0.1 X10'3 (0-0.9); HEMATOCRIT 41.9 % (42.0-52.0); HEMOGLOBIN 14.5 g/dl (14.0-17.9); LYMPHOCYTES # (AUTO) 3.1 X10'3 (1.1-4.8); LYMPHOCYTES % (AUTO) 38.7 % (21-51); MEAN CORPUSCULAR HEMOGLOBIN 33.3 PG (27.0-31.0); MEAN CORPUSCULAR HGB CONC 34.7 g/dL (33.0-36.5); MEAN CORPUSCULAR VOLUME 95.8 FL (78-98); MEAN PLATELET VOLUME 8.5 FL (7.4-10.4); MONOCYTES # (AUTO) 0.9 X10'3 (0-0.9); NEUTROPHILS # (AUTO) 3.9 X10'3 (1.8-7.7); NEUTROPHILS % (AUTO) 48.7 % (42-75); PLATELET COUNT 211 X10'3 (140-440); RED BLOOD COUNT 4.37 X10'6 (4.70-6.10); RED CELL DISTRIBUTION WIDTH 13.7 % (11.5-14.5)
--- NOTE | 2018-11-22 06:29 | NUR ---
Problems reprioritized. Patient report given, questions answered & plan of care reviewed with Chele Rivers. oRIENTEE documentation: I have reviewed and agree with all interventions, MEDS GIVEN, assessments performed and documented by GONZALES RIVERS.
[2018-11-22 06:34] LABS: ALBUMIN 3.6 G/DL (3.4-5.0); ANION GAP 10 (8-16); BLOOD UREA NITROGEN 18 MG/DL (7-18); BUN/CREATININE RATIO 15.9 (5.4-32.0); CALCIUM 8.8 MG/DL (8.5-10.1); CHLORIDE 105 MMOL/L (99-107); CREATININE 1.13 MG/DL (0.60-1.10); GLUCOSE 131 MG/DL (70-104); POTASSIUM 3.8 MMOL/L (3.5-5.1); SODIUM 142 MMOL/L (135-145); TOTAL CARBON DIOXIDE 27.1 MMOL/L (24-32); eGFR 65 ML/MIN
--- NOTE | 2018-11-22 06:34 | NUR ---
Patient in room PCU 3026r. I have received report from REBEKAH Bullard and had the opportunity to ask questions and assume patient care. Patient awake in bed, denies any pain or distress. All needs met. Will continue to monitor.
[2018-11-22] MEDS: vitamin E 400 unit capsule PO SCH (07:10)
[2018-11-22] MEDS: losartan 25mg tablet PO SCH (07:10)
[2018-11-22] MEDS: ezetimibe 10mg tablet PO SCH (07:11)
[2018-11-22] MEDS: allopurinol 100mg tablet PO SCH ×2 (07:11→21:10)
[2018-11-22] MEDS: levoTHYROXINE 25mcg tablet PO SCH (07:11)
[2018-11-22] MEDS: digoxin 250mcg (0.25mg) tablet PO SCH (07:14)
[2018-11-22] MEDS: metoprolol succinate 25mg (24-HOUR) SR. Tablet PO SCH (08:00)
[2018-11-22] MEDS: sotalol 40mg tablet PO SCH ×2 (08:00→20:00)
[2018-11-22] MEDS ORDERED: aspirin 325mg tablet, delayed-release (Ecotrin) PO SCH (08:00)
[2018-11-22] MEDS ORDERED: ticagrelor 90mg tablet PO SCH (08:00)
[2018-11-22] MEDS ORDERED: normal saline 1000ml 1,000 ML IV SCH ×3 (10:45→14:15)
[2018-11-22] MEDS ORDERED: nitroGLYCERIN-Tridil 50MG/D5W 250 ML IV ONE (11:54)
[2018-11-22] MEDS ORDERED: midazolam 2 mg/2 ml injection ONE (11:54)
[2018-11-22] MEDS ORDERED: iohexol 350 MG/ML 50ML vial IV ONE (11:54)
[2018-11-22] MEDS ORDERED: LIDOcaine 1% (10mg/ml)w/preservative injection 20ml MDV ONE (11:54)
[2018-11-22] MEDS ORDERED: fentaNYL/PF 50MCG/1 ML 2ML syringe ONE (11:54)
[2018-11-22] MEDS ORDERED: heparin 1,000unit/ml 10ml vial 10 ML ONE (11:54)
[2018-11-22] MEDS ORDERED: verapamil 2.5 mg/ml inj IV ONE (11:54)
[2018-11-22] MEDS ORDERED: iohexol 350MG/ML 100ml bottle IV ONE (11:54)
--- NOTE | 2018-11-22 12:18 | NUR ---
Patient transported off unit to [employer]ing [employer] Operator.
[2018-11-22] MEDS ORDERED: iohexol 350 MG/1 ML 200ml bottle ONE (13:13)
[2018-11-22] MEDS ORDERED: heparin 25,000 UNIT/250ml bag 250 ML IV ONE (13:15)
[2018-11-22] MEDS ORDERED: ticagrelor 90mg tablet ONE (13:16)
--- NOTE | 2018-11-22 14:00 | NUR ---
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 Pressure dressing to rt antecubital and hemostatic wrist band in place to rt wrist. Both are intact with no bleeding noted. VSS. NS and Nitroglycerin drip infusing per MD orders.
--- NOTE | 2018-11-22 15:09 | NUR ---
Pressure dressing removed from rt. antecubital. Patient states it is too tight. Smaller, looser dressing applied. No bleeding noted.
[2018-11-22] MEDS: nitroGLYCERIN-Tridil 50MG/D5W 250 ML IV SCH (15:27)
--- NOTE | 2018-11-22 16:46 | NUR ---
Orientee documentation: I have reviewed and agree with all interventions, assessments performed and documented by Yesika Moss RN.
--- NOTE | 2018-11-22 17:58 | NUR ---
Patient report given to REBEKAH Cedillo in [facility].
--- NOTE | 2018-11-22 18:15 | NUR ---
received report from REBEKAH Napoles; gave report to noc shift RN pt arrived to room 307 at 1820
--- NOTE | 2018-11-22 18:15 | NUR ---
Patient in room MED 307. I have received report from REBEKAH Cedillo and had the opportunity to ask questions and assume patient care.
--- NOTE | 2018-11-22 18:24 | NUR ---
Problems reprioritized. Patient report given, questions answered & plan of care reviewed with REBEKAH Gates.
--- NOTE | 2018-11-22 19:00 | NUR ---
Patients family brought him food to eat. Addendum: 11/22/18 at 2257 by Demetrice Pope RN Amended: Links added.
--- NOTE | 2018-11-22 20:30 | NUR ---
This patient used the call light to get up to use the toilet. He put his call light on again some time later (approx. 15 minutes later), when I went in to answer the call light, the patient was back in bed. He stated that he was having some chest pain. He was also visibly short of breath. He stated that his pain was at a 2-3/10 on the left chest. He also stated that he has been having pain when he is active. I stayed with the patient for approx 10 minutes. During that time within 5 minutes he stated that the pain had subsided. The patient has a nitroglycerin drip running at 10 mcg/min. I will continue to monitor patient for duration of shift.
[2018-11-22] MEDS: insulin glargine (Lantus) pen - multi-dose SQ SCH (21:00)
[2018-11-23] VITALS (7 sets, daily range): BP systolic 98–135; BP diastolic 58–84
--- NOTE | 2018-11-23 | NUR ---
Unable to update IV Spread sheet. Addendum: 11/23/18 at 0156 by Demetrice Pope RN Amended: Links added.
[2018-11-23 04:48] LABS: BASOPHILS % (AUTO) 0.5 % (0-1); EOSINOPHILS # (AUTO) 0.1 X10'3 (0-0.9); EOSINOPHILS % (AUTO) 1.1 % (0-6); HEMATOCRIT 42.6 % (42.0-52.0); HEMOGLOBIN 14.7 g/dl (14.0-17.9); LYMPHOCYTES # (AUTO) 2.8 X10'3 (1.1-4.8); MEAN CORPUSCULAR HEMOGLOBIN 33.2 PG (27.0-31.0); MEAN CORPUSCULAR HGB CONC 34.6 g/dL (33.0-36.5); MEAN CORPUSCULAR VOLUME 95.9 FL (78-98); MEAN PLATELET VOLUME 8.4 FL (7.4-10.4); MONOCYTES % (AUTO) 11.4 % (2-12); PLATELET COUNT 206 X10'3 (140-440); RED BLOOD COUNT 4.44 X10'6 (4.70-6.10); WHITE BLOOD COUNT 8.9 X10'3 (4.5-11.0)
[2018-11-23 05:23] LABS: ALBUMIN 3.6 G/DL (3.4-5.0); ANION GAP 13 (8-16); BLOOD UREA NITROGEN 16 MG/DL (7-18); CALCIUM 8.3 MG/DL (8.5-10.1); CHLORIDE 106 MMOL/L (99-107); CHOL/HDL RATIO 6.1 (0.00-4.99); CHOLESTEROL 194 MG/DL (0-200); CREATININE 0.89 MG/DL (0.60-1.10); GLUCOSE 134 MG/DL (70-104); HDL CHOLESTEROL 32 MG/DL (35-60); LDL CHOLESTEROL 54 MG/DL (50-100); POTASSIUM 3.6 MMOL/L (3.5-5.1); SODIUM 141 MMOL/L (135-145); TOTAL CARBON DIOXIDE 22.5 MMOL/L (24-32); TRIGLYCERIDES 812 MG/DL (20-135); eGFR 85 ML/MIN
--- NOTE | 2018-11-23 05:27 | NUR ---
Orienteer documentation: I have reviewed and agree with interventions, assessments performed and documented by REBEKAH Suresh. Orienteer Medication Administration: For this medication-pass time frame, medication were reviewed, dispensed, administered and documented per hospital policy by REBEKAH Suersh.
--- NOTE | 2018-11-23 06:34 | NUR ---
Problems reprioritized. Patient report given, questions answered & plan of care reviewed with REBEKAH Pérez.
[2018-11-23] MEDS: metoprolol succinate 25mg (24-HOUR) SR. Tablet PO SCH (08:00)
[2018-11-23] MEDS: digoxin 250mcg (0.25mg) tablet PO SCH (08:00)
[2018-11-23] MEDS: sotalol 40mg tablet PO SCH ×2 (08:00→20:00)
[2018-11-23] MEDS: vitamin E 400 unit capsule PO SCH (08:49)
[2018-11-23] MEDS: levoTHYROXINE 25mcg tablet PO SCH (08:50)
[2018-11-23] MEDS: ezetimibe 10mg tablet PO SCH (08:50)
[2018-11-23] MEDS: aspirin 81mg tab.chew PO SCH (08:50)
[2018-11-23] MEDS: allopurinol 100mg tablet PO SCH ×2 (08:50→19:52)
[2018-11-23] MEDS: losartan 25mg tablet PO SCH (08:52)
[2018-11-23] MEDS ORDERED: iohexol 350MG/ML 100ml bottle IV ONE (11:16)
--- NOTE | 2018-11-23 17:30 | NUR ---
Orienteer documentation: I have reviewed and agree with all interventions, assessments performed and documented by REBEKAH Cedillo. Orienteer Medication Administration: For this medication-pass time frame, all medication were reviewed, dispensed, administered and documented per hospital policy by REBEKAH Cedillo.
--- NOTE | 2018-11-23 18:50 | NUR ---
Patient in room MED 307. I have received report from REBEKAH Cedillo and had the opportunity to ask questions and assume patient care.
[2018-11-23] MEDS: colchicine 0.6mg tablet PO SCH (19:52)
[2018-11-23] MEDS: acetaminophen 325mg tablet PO PRN (20:05)
[2018-11-23] MEDS: insulin glargine (Lantus) pen - multi-dose SQ SCH (21:00)
[2018-11-24] VITALS (8 sets, daily range): BP systolic 112–122; BP diastolic 69–81
[2018-11-24 05:48] LABS: BASOPHILS % (AUTO) 0.4 % (0-1); EOSINOPHILS # (AUTO) 0.1 X10'3 (0-0.9); EOSINOPHILS % (AUTO) 1.2 % (0-6); HEMATOCRIT 42.8 % (42.0-52.0); HEMOGLOBIN 14.6 g/dl (14.0-17.9); LYMPHOCYTES # (AUTO) 2.8 X10'3 (1.1-4.8); LYMPHOCYTES % (AUTO) 36.2 % (21-51); MEAN CORPUSCULAR HEMOGLOBIN 33.3 PG (27.0-31.0); MEAN CORPUSCULAR HGB CONC 34.1 g/dL (33.0-36.5); MEAN CORPUSCULAR VOLUME 97.7 FL (78-98); MEAN PLATELET VOLUME 8.6 FL (7.4-10.4); MONOCYTES # (AUTO) 0.8 X10'3 (0-0.9); MONOCYTES % (AUTO) 10.7 % (2-12); NEUTROPHILS # (AUTO) 3.9 X10'3 (1.8-7.7); NEUTROPHILS % (AUTO) 51.5 % (42-75); PLATELET COUNT 205 X10'3 (140-440); RED BLOOD COUNT 4.39 X10'6 (4.70-6.10); RED CELL DISTRIBUTION WIDTH 14.3 % (11.5-14.5); WHITE BLOOD COUNT 7.6 X10'3 (4.5-11.0)
[2018-11-24 06:20] LABS: ALBUMIN 3.7 G/DL (3.4-5.0); ANION GAP 13 (8-16); BLOOD UREA NITROGEN 16 MG/DL (7-18); BUN/CREATININE RATIO 16.7 (5.4-32.0); CALCIUM 8.6 MG/DL (8.5-10.1); CHLORIDE 106 MMOL/L (99-107); CREATININE 0.96 MG/DL (0.60-1.10); GLUCOSE 124 MG/DL (70-104); POTASSIUM 3.7 MMOL/L (3.5-5.1); SODIUM 143 MMOL/L (135-145); TOTAL CARBON DIOXIDE 23.7 MMOL/L (24-32); eGFR 78 ML/MIN
--- NOTE | 2018-11-24 06:23 | NUR ---
Problems reprioritized. Patient report given, questions answered & plan of care reviewed with REBEKAH Cedillo and Julianne (student).
--- NOTE | 2018-11-24 06:24 | NUR ---
Problems reprioritized. Patient report given, questions answered & plan of care reviewed with REBEKAH Cedillo.
--- NOTE | 2018-11-24 06:36 | NUR ---
received report from REBEKAH [facility]
--- NOTE | 2018-11-24 06:39 | NUR ---
Problems reprioritized. Patient report given, questions answered & plan of care reviewed with REBEKAH Farmer.
[2018-11-24] MEDS: metoprolol succinate 25mg (24-HOUR) SR. Tablet PO SCH (08:00)
[2018-11-24] MEDS: aspirin 81mg tab.chew PO SCH (08:31)
[2018-11-24] MEDS: losartan 25mg tablet PO SCH (08:31)
[2018-11-24] MEDS: allopurinol 100mg tablet PO SCH ×2 (08:31→21:36)
[2018-11-24] MEDS: levoTHYROXINE 25mcg tablet PO SCH (08:31)
[2018-11-24] MEDS: vitamin E 400 unit capsule PO SCH (08:31)
[2018-11-24] MEDS: ezetimibe 10mg tablet PO SCH (08:32)
[2018-11-24] MEDS: digoxin 250mcg (0.25mg) tablet PO SCH (08:32)
[2018-11-24] MEDS: sotalol 40mg tablet PO SCH ×2 (08:33→21:35)
--- NOTE | 2018-11-24 18:05 | NUR ---
Patient in room MED 307. I have received report from REBEKAH Cedillo and had the opportunity to ask questions and assume patient care.
[2018-11-24] MEDS: nitroGLYCERIN-Tridil 50MG/D5W 250 ML IV SCH (19:33)
[2018-11-24] MEDS: insulin glargine (Lantus) pen - multi-dose SQ SCH (21:00)
[2018-11-24] MEDS: colchicine 0.6mg tablet PO SCH (21:36)
[2018-11-25] VITALS (8 sets, daily range): BP systolic 91–120; BP diastolic 48–82
[2018-11-25 05:59] LABS: BASOPHILS % (AUTO) 0.5 % (0-1); EOSINOPHILS # (AUTO) 0.1 X10'3 (0-0.9); EOSINOPHILS % (AUTO) 1.2 % (0-6); HEMATOCRIT 41.1 % (42.0-52.0); HEMOGLOBIN 14.3 g/dl (14.0-17.9); LYMPHOCYTES # (AUTO) 2.9 X10'3 (1.1-4.8); LYMPHOCYTES % (AUTO) 32.8 % (21-51); MEAN CORPUSCULAR HEMOGLOBIN 33.6 PG (27.0-31.0); MEAN CORPUSCULAR HGB CONC 34.7 g/dL (33.0-36.5); MEAN CORPUSCULAR VOLUME 96.6 FL (78-98); MEAN PLATELET VOLUME 8.5 FL (7.4-10.4); MONOCYTES # (AUTO) 0.8 X10'3 (0-0.9); MONOCYTES % (AUTO) 9.7 % (2-12); NEUTROPHILS # (AUTO) 4.9 X10'3 (1.8-7.7); NEUTROPHILS % (AUTO) 55.8 % (42-75); PLATELET COUNT 213 X10'3 (140-440); RED BLOOD COUNT 4.25 X10'6 (4.70-6.10); RED CELL DISTRIBUTION WIDTH 14.1 % (11.5-14.5); WHITE BLOOD COUNT 8.7 X10'3 (4.5-11.0)
[2018-11-25 06:00] LABS: ALBUMIN 3.7 G/DL (3.4-5.0); ANION GAP 10 (8-16); BLOOD UREA NITROGEN 17 MG/DL (7-18); BUN/CREATININE RATIO 19.5 (5.4-32.0); CALCIUM 9.1 MG/DL (8.5-10.1); CHLORIDE 106 MMOL/L (99-107); CREATININE 0.87 MG/DL (0.60-1.10); GLUCOSE 115 MG/DL (70-104); POTASSIUM 3.8 MMOL/L (3.5-5.1); SODIUM 141 MMOL/L (135-145); TOTAL CARBON DIOXIDE 24.9 MMOL/L (24-32); eGFR 88 ML/MIN
--- NOTE | 2018-11-25 06:15 | NUR ---
Patient in room MED 307. I have received report from REBEKAH Suresh and had the opportunity to ask questions and assume patient care.
[2018-11-25] MEDS ORDERED: colchicine 0.6mg tablet PO ONE ×2 (06:30→07:30)
--- NOTE | 2018-11-25 06:43 | NUR ---
Problems reprioritized. Patient report given, questions answered & plan of care reviewed with Jana RN.
[2018-11-25] MEDS: ezetimibe 10mg tablet PO SCH (08:46)
[2018-11-25] MEDS: allopurinol 100mg tablet PO SCH ×2 (08:46→20:14)
[2018-11-25] MEDS: levoTHYROXINE 25mcg tablet PO SCH (08:46)
[2018-11-25] MEDS: vitamin E 400 unit capsule PO SCH (08:47)
[2018-11-25] MEDS: aspirin 81mg tab.chew PO SCH (08:47)
[2018-11-25] MEDS: digoxin 250mcg (0.25mg) tablet PO SCH (08:47)
[2018-11-25] MEDS: sotalol 40mg tablet PO SCH ×2 (08:48→20:15)
[2018-11-25] MEDS: losartan 25mg tablet PO SCH (08:48)
[2018-11-25] MEDS: acetaminophen 325mg tablet PO PRN ×2 (12:22→20:14)
--- NOTE | 2018-11-25 18:21 | NUR ---
Problems reprioritized. Patient report given, questions answered & plan of care reviewed with REBEKAH Rodriguez.
--- NOTE | 2018-11-25 18:56 | NUR ---
Patient in room MED 307. I have received report from Radha WELCH and had the opportunity to ask questions and assume patient care.
[2018-11-25] MEDS: insulin glargine (Lantus) pen - multi-dose SQ SCH (21:00)
[2018-11-25] MEDS: colchicine 0.6mg tablet PO SCH (21:36)
[2018-11-26] VITALS (9 sets, daily range): BP systolic 101–155; BP diastolic 56–88
--- NOTE | 2018-11-26 06:00 | NUR ---
Problems reprioritized. Patient report given, questions answered & plan of care reviewed with Radha WELCH.
--- NOTE | 2018-11-26 06:02 | NUR ---
Problems reprioritized. Patient report given, questions answered & plan of care reviewed with Radha.
--- NOTE | 2018-11-26 06:05 | NUR ---
Patient in room MED 307. I have received report from REBEKAH Rodriguez and had the opportunity to ask questions and assume patient care.
[2018-11-26 07:00] LABS: ALBUMIN 3.8 G/DL (3.4-5.0); ANION GAP 12 (8-16); BLOOD UREA NITROGEN 15 MG/DL (7-18); BUN/CREATININE RATIO 15.8 (5.4-32.0); CALCIUM 8.9 MG/DL (8.5-10.1); CHLORIDE 105 MMOL/L (99-107); CREATININE 0.95 MG/DL (0.60-1.10); GLUCOSE 121 MG/DL (70-104); POTASSIUM 3.7 MMOL/L (3.5-5.1); SODIUM 142 MMOL/L (135-145); TOTAL CARBON DIOXIDE 24.9 MMOL/L (24-32); eGFR 79 ML/MIN
[2018-11-26 07:15] LABS: BASOPHILS % (AUTO) 0.5 % (0-1); EOSINOPHILS # (AUTO) 0.1 X10'3 (0-0.9); EOSINOPHILS % (AUTO) 1.3 % (0-6); HEMATOCRIT 41.5 % (42.0-52.0); HEMOGLOBIN 14.6 g/dl (14.0-17.9); LYMPHOCYTES # (AUTO) 2.9 X10'3 (1.1-4.8); LYMPHOCYTES % (AUTO) 39.5 % (21-51); MEAN CORPUSCULAR HEMOGLOBIN 33.7 PG (27.0-31.0); MEAN CORPUSCULAR HGB CONC 35.3 g/dL (33.0-36.5); MEAN CORPUSCULAR VOLUME 95.7 FL (78-98); MEAN PLATELET VOLUME 8.5 FL (7.4-10.4); MONOCYTES % (AUTO) 12.8 % (2-12); NEUTROPHILS # (AUTO) 3.4 X10'3 (1.8-7.7); NEUTROPHILS % (AUTO) 45.9 % (42-75); PLATELET COUNT 208 X10'3 (140-440); RED BLOOD COUNT 4.34 X10'6 (4.70-6.10); RED CELL DISTRIBUTION WIDTH 13.7 % (11.5-14.5); WHITE BLOOD COUNT 7.4 X10'3 (4.5-11.0)
[2018-11-26] MEDS: allopurinol 100mg tablet PO SCH ×2 (08:15→20:57)
[2018-11-26] MEDS: ezetimibe 10mg tablet PO SCH (08:16)
[2018-11-26] MEDS: aspirin 81mg tab.chew PO SCH (08:16)
[2018-11-26] MEDS: digoxin 250mcg (0.25mg) tablet PO SCH (08:16)
[2018-11-26] MEDS: vitamin E 400 unit capsule PO SCH (08:16)
[2018-11-26] MEDS: losartan 25mg tablet PO SCH (08:17)
[2018-11-26] MEDS: levoTHYROXINE 25mcg tablet PO SCH (08:17)
[2018-11-26] MEDS: sotalol 40mg tablet PO SCH ×2 (08:18→20:58)
[2018-11-26] MEDS: acetaminophen 325mg tablet PO PRN ×2 (08:18→20:56)
--- NOTE | 2018-11-26 11:44 | NUR ---
Initial: Pt admit for unstable angina with multivessel disease recommended for redo CABG per MD notes. Pt currently on CHO controlled diet with documented 75-100% PO intake meeting nutrient needs. Per lipid panel results 11/23 patient's TG up to 812, d/w RN adding heart healthy to current diet order. Pt would benefit from nutrition therapy education prior to discharge. LBM 11/25. No edema or wounds. No nutrition diagnosis at this time. Will continue to follow. Recommendations: 1) Continue CHO controlled diet with the addition of heart healthy 2) Heart healthy diet education prior to discharge 3) Wt per rx Addendum: 11/26/18 at [address] Amended: Links added.
[2018-11-26] MEDS: nitroGLYCERIN-Tridil 50MG/D5W 250 ML IV SCH (14:20)
--- NOTE | 2018-11-26 17:40 | NUR ---
Orienteer documentation: I have reviewed and agree with all interventions, assessments performed and documented by Radha WELCH.
--- NOTE | 2018-11-26 18:00 | NUR ---
Patient in room MED 307. I have received report from Radha WELCH and had the opportunity to ask questions and assume patient care.
--- NOTE | 2018-11-26 18:08 | NUR ---
Problems reprioritized. Patient report given, questions answered & plan of care reviewed with Jennifer WELCH.
[2018-11-26] MEDS: colchicine 0.6mg tablet PO SCH (20:57)
[2018-11-26] MEDS: insulin glargine (Lantus) pen - multi-dose SQ SCH (21:00)
[2018-11-27] VITALS (11 sets, daily range): BP systolic 112–125; BP diastolic 70–83
--- NOTE | 2018-11-27 06:32 | NUR ---
I have received report from Jennifer WELCH and had the opportunity to ask questions and assume patient care.
[2018-11-27 07:20] LABS: BASOPHILS # (AUTO) 0.1 X10'3 (0-0.2); BASOPHILS % (AUTO) 0.9 % (0-1); EOSINOPHILS # (AUTO) 0.1 X10'3 (0-0.9); EOSINOPHILS % (AUTO) 1.6 % (0-6); HEMATOCRIT 41.7 % (42.0-52.0); HEMOGLOBIN 14.3 g/dl (14.0-17.9); LYMPHOCYTES # (AUTO) 2.7 X10'3 (1.1-4.8); LYMPHOCYTES % (AUTO) 37.2 % (21-51); MEAN CORPUSCULAR HEMOGLOBIN 33.7 PG (27.0-31.0); MEAN CORPUSCULAR HGB CONC 34.4 g/dL (33.0-36.5); MEAN PLATELET VOLUME 8.6 FL (7.4-10.4); MONOCYTES # (AUTO) 0.9 X10'3 (0-0.9); NEUTROPHILS # (AUTO) 3.5 X10'3 (1.8-7.7); NEUTROPHILS % (AUTO) 48.3 % (42-75); PLATELET COUNT 207 X10'3 (140-440); RED BLOOD COUNT 4.26 X10'6 (4.70-6.10); RED CELL DISTRIBUTION WIDTH 14.3 % (11.5-14.5); WHITE BLOOD COUNT 7.2 X10'3 (4.5-11.0)
[2018-11-27 07:32] LABS: ALBUMIN 3.7 G/DL (3.4-5.0); ANION GAP 9 (8-16); BLOOD UREA NITROGEN 16 MG/DL (7-18); BUN/CREATININE RATIO 17.2 (5.4-32.0); CALCIUM 8.6 MG/DL (8.5-10.1); CHLORIDE 108 MMOL/L (99-107); CREATININE 0.93 MG/DL (0.60-1.10); GLUCOSE 128 MG/DL (70-104); POTASSIUM 3.7 MMOL/L (3.5-5.1); SODIUM 143 MMOL/L (135-145); eGFR 81 ML/MIN
[2018-11-27] MEDS: aspirin 81mg tab.chew PO SCH (08:00)
[2018-11-27] MEDS: losartan 25mg tablet PO SCH (08:00)
[2018-11-27] MEDS: sotalol 40mg tablet PO SCH ×2 (08:01→20:05)
[2018-11-27] MEDS: digoxin 250mcg (0.25mg) tablet PO SCH (08:01)
[2018-11-27] MEDS: allopurinol 100mg tablet PO SCH ×2 (08:02→20:05)
[2018-11-27] MEDS: ezetimibe 10mg tablet PO SCH (08:02)
[2018-11-27] MEDS: levoTHYROXINE 25mcg tablet PO SCH (08:02)
[2018-11-27] MEDS: vitamin E 400 unit capsule PO SCH (08:02)
--- NOTE | 2018-11-27 11:14 | NUR ---
F/u: Pt/family/SO seen by RD for written/verbal CABG and heart healthy diet eds w/ RD contact information provided. Pt reports allergy to all statins and TG were in 1900's on last check. Per MD note plans for redo CABG in AM. Pt was able to verbalize heart healthy diet guidelines and diet at home. Pt diet/lifestyle follow guidelines quite well and pt is knowledgeable of proper diet recommendations. RD reviewed high protein needs and ONS options post-op. Will continue to monitor. Initial: Pt admit for unstable angina with multivessel disease recommended for redo CABG per MD notes. Pt currently on CHO controlled diet with documented 75-100% PO intake meeting nutrient needs. Per lipid panel results 11/23 patient's TG up to 812, d/w RN adding heart healthy to current diet order. Pt would benefit from nutrition therapy education prior to discharge. LBM 11/25. No edema or wounds. No nutrition diagnosis at this time. Will continue to follow. Recommendations: 1) Continue CHO controlled/heart healthy diet 2) monitor for ONS needs once post-op 3) Wt per rx Addendum: 11/27/18 at [address] Amended: Links added.
--- NOTE | 2018-11-27 16:29 | NUR ---
Gage. Pt. needs ABG for CABG in the morning. Thank You.
[2018-11-27] MEDS ORDERED: potassium Cl 20 mEq SR tablet PO PRN (16:30)
[2018-11-27] MEDS ORDERED: potassium Cl 20mEq/100mL bag 100 ML IV PRN (16:30)
[2018-11-27] MEDS ORDERED: magnesium 4gm in 100ml NS 100 ML IV PRN (16:30)
[2018-11-27] MEDS ORDERED: dextrose 50%-water 50ml dispensing syringe IV PRN (16:30)
[2018-11-27] MEDS ORDERED: insulin glargine (Lantus) pen - multi-dose SQ PRN (16:30)
[2018-11-27] MEDS ORDERED: ringers solution, lacted 1,000 ML IV SCH (16:30)
[2018-11-27] MEDS ORDERED: potassium CL 10mEq/100ml bag 100 ML IV PRN (16:30)
[2018-11-27] MEDS ORDERED: magnesium 2GM in 50ml NS 50 ML IV PRN (16:30)
[2018-11-27] MEDS ORDERED: MALTODEXTRIN/FRUCTOSE 0.68 KCAL/ML LIQUID 296ML BOTTLE PO ONE (16:30)
[2018-11-27] MEDS ORDERED: MESSAGE TO NURSING PO ONE ×4 (16:30)
[2018-11-27 17:06] LABS: ABG BASE EXCESS -0.8 mmol/L (-2.0-3.0); ABG OXYGEN SATURATION 97.3 % (95-98); ABG PCO2 (T) 31.5 mmHg (35.0-45.0); ABG PH (T) 7.462 (7.350-7.450); ABG PO2 (T) 92.6 mmHg (83-108); ALLEN'S TEST Positive; FCOHb 0.4 % (0.5-1.5); FMetHb 0.2 % (0.3-1.12); FO2Hb 96.7 % (94-100); RESPIRATORY RATE (OBSERVED) 16 b/min; TOTAL HEMOGLOBIN 14.9 G/dl (14.0-17.9)
--- NOTE | 2018-11-27 18:15 | NUR ---
Patient in room MED 307. I have received report from REBEKAH Smith and had the opportunity to ask questions and assume patient care.
--- NOTE | 2018-11-27 18:20 | NUR ---
Problems reprioritized. Patient report given, questions answered & plan of care reviewed with Ambrose WELCH.
[2018-11-27] MEDS ORDERED: metoprolol tartrate 12.5mg (1/2 tablet) PO SCH (20:00)
[2018-11-27] MEDS: colchicine 0.6mg tablet PO SCH (20:05)
[2018-11-27] MEDS: mupirocin 2% nasal ointment 1gm UD NS SCH (20:06)
[2018-11-27] MEDS: acetaminophen 325mg tablet PO PRN (20:06)
[2018-11-27] MEDS: insulin glargine (Lantus) pen - multi-dose SQ SCH (21:00)
[2018-11-27] MEDS ORDERED: zolpidem 5mg tablet PO STA (21:37)
[2018-11-28] VITALS (17 sets, daily range): BP systolic 77–134; BP diastolic 46–84
[2018-11-28] MEDS: nitroGLYCERIN-Tridil 50MG/D5W 250 ML IV SCH (00:48)
[2018-11-28 04:47] LABS: BASOPHILS % (AUTO) 0.6 % (0-1); EOSINOPHILS # (AUTO) 0.1 X10'3 (0-0.9); EOSINOPHILS % (AUTO) 1.6 % (0-6); HEMATOCRIT 43.4 % (42.0-52.0); HEMOGLOBIN 15.1 g/dl (14.0-17.9); LYMPHOCYTES # (AUTO) 2.4 X10'3 (1.1-4.8); LYMPHOCYTES % (AUTO) 34.3 % (21-51); MEAN CORPUSCULAR HEMOGLOBIN 33.8 PG (27.0-31.0); MEAN CORPUSCULAR HGB CONC 34.9 g/dL (33.0-36.5); MEAN PLATELET VOLUME 8.6 FL (7.4-10.4); MONOCYTES # (AUTO) 0.8 X10'3 (0-0.9); MONOCYTES % (AUTO) 10.7 % (2-12); NEUTROPHILS # (AUTO) 3.8 X10'3 (1.8-7.7); NEUTROPHILS % (AUTO) 52.8 % (42-75); PLATELET COUNT 218 X10'3 (140-440); RED BLOOD COUNT 4.48 X10'6 (4.70-6.10); WHITE BLOOD COUNT 7.1 X10'3 (4.5-11.0)
[2018-11-28 05:16] LABS: ALANINE AMINOTRANSFERASE 56 U/L (12-78); ALBUMIN/GLOBULIN RATIO 1.1 (1.1-1.5); ALKALINE PHOSPHATASE 48 IU/L (46-116); ANION GAP 12 (8-16); ASPARTATE AMINO TRANSFERASE 24 U/L (10-37); BLOOD UREA NITROGEN 14 MG/DL (7-18); CALCIUM 9.4 MG/DL (8.5-10.1); CHLORIDE 105 MMOL/L (99-107); GLUCOSE 133 MG/DL (70-104); POTASSIUM 3.5 MMOL/L (3.5-5.1); SODIUM 142 MMOL/L (135-145); TOTAL CARBON DIOXIDE 25.2 MMOL/L (24-32); TOTAL PROTEIN 7.8 G/DL (6.4-8.2); eGFR 75 ML/MIN
[2018-11-28] MEDS ORDERED: ROPIVAcaine 0.5% (5mg/ml) 30ml vial ONE (05:17)
[2018-11-28] MEDS ORDERED: vancomycin inj 1,500 MG in normal saline 300ml IV soln IV ONE (05:30)
[2018-11-28] MEDS: mupirocin 2% nasal ointment 1gm UD NS SCH (05:36)
[2018-11-28] MEDS ORDERED: cefazolin/dext.iso 2gm/50ml 50 ML IV ONE (06:00)
[2018-11-28] MEDS ORDERED: vancomycin/NS 1 GM ADD-VANTAGE 250 ML IV ONE (06:00)
[2018-11-28] MEDS ORDERED: LORazepam 2 mg/ml vial IV ONE (06:00)
[2018-11-28] MEDS ORDERED: famotidine 20mg tablet PO ONE (06:00)
[2018-11-28] MEDS ORDERED: gabapentin 400mg capsule PO ONE (06:00)
--- NOTE | 2018-11-28 06:00 | NUR ---
Reviewed and agreed with REBEKAH Suresh's charting
--- NOTE | 2018-11-28 06:00 | NUR ---
Problems reprioritized. Patient report given, questions answered & plan of care reviewed with REBEKAH Pérez.
--- NOTE | 2018-11-28 06:30 | NUR ---
Patient in room MED 307. I have received report from Demetrice WELCH and had the opportunity to ask questions and assume patient care.
--- NOTE | 2018-11-28 06:44 | NUR ---
Patient transferred to [facility].
[2018-11-28] MEDS ORDERED: DOPamine/D5W 400mg/250ml bag IV ONE (06:46)
[2018-11-28] MEDS ORDERED: NORepinephrine bitartrate 8 MG in NS 250 ML BAG (32 mcg/ml) IV ONE (06:46)
[2018-11-28] MEDS ORDERED: ceFAZolin 1000mg inj ONE (06:46)
[2018-11-28] MEDS ORDERED: sevoflurane 250ml liquid IH ONE (06:46)
[2018-11-28] MEDS ORDERED: protamine sulf. 10mg/ml inj. IV ONE (06:46)
[2018-11-28] MEDS ORDERED: rocuronium 10mg/ml inj IV ONE ×4 (06:46→13:43)
[2018-11-28] MEDS ORDERED: midazolam 2 mg/2 ml injection ONE ×2 (06:51)
[2018-11-28] MEDS ORDERED: SUFENTANIL CITRATE 50 MCG/ML 2ml ampule IV ONE (06:51)
[2018-11-28] MEDS ORDERED: propofol inj 20 ML IV ONE (06:54)
[2018-11-28 07:30] LABS: ABG BASE EXCESS -4.2 mmol/L (-2.0-3.0); ABG OXYGEN SATURATION 99.2 % (95-98); ABG PCO2 34.5 mmHg (35.0-45.0); ABG PH 7.382 (7.350-7.450); CL (ABG) 101 mmol/L (99-107); FCOHb 0.6 % (0.5-1.5); FMetHb 0.3 % (0.3-1.12); FO2Hb 98.3 % (94-100); GLUCOSE (ABG) 203 mg/dl (70-104); IONIZED CA (ABG) 1.17 mmol/L (1.03-1.32); K (ABG) 3.6 mmol/L (3.3-5.1); NA (ABG) 140 mmol/L (135-145)
[2018-11-28] MEDS ORDERED: papaverine 30 mg/ml 2ml inj. IA ONE (07:53)
[2018-11-28] MEDS ORDERED: heparin 10,000 units/1 ML INJ IR ONE (07:53)
[2018-11-28] MEDS: levoTHYROXINE 25mcg tablet PO SCH (08:00)
[2018-11-28] MEDS: allopurinol 100mg tablet PO SCH ×2 (08:00→20:00)
[2018-11-28] MEDS ORDERED: MESSAGE TO NURSING PO ONE (10:00)
[2018-11-28 10:11] LABS: ABG BASE EXCESS -0.4 mmol/L (-2.0-3.0); ABG HCO3 23.7 mmol/L (22.0-26.0); ABG OXYGEN SATURATION 99.1 % (95-98); ABG PCO2 36.6 mmHg (35.0-45.0); ABG PH 7.429 (7.350-7.450); CL (ABG) 100 mmol/L (99-107); FCOHb 0.3 % (0.5-1.5); FMetHb 0.4 % (0.3-1.12); FO2Hb 98.4 % (94-100); GLUCOSE (ABG) 141 mg/dl (70-104); IONIZED CA (ABG) 0.94 mmol/L (1.03-1.32); K (ABG) 3.6 mmol/L (3.3-5.1); NA (ABG) 135 mmol/L (135-145); TOTAL HEMOGLOBIN 11.2 G/dl (14.0-17.9)
[2018-11-28 10:16] LABS: ABG BASE EXCESS VENOUS 0.7 mmol/L; ABG HCO3 VENOUS 25.8 mmol/L; ABG PCO2 VENOUS 43.3 mmHg; CL (ABG) 101 mmol/L (99-107); FCOHb VENOUS 0.5 %; FHHb VENOUS 18.7 %; FMetHb VENOUS 0.4 %; FO2Hb VENOUS 80.4 %; GLUCOSE (ABG) 150 mg/dl (70-104); IONIZED CA (ABG) 0.98 mmol/L (1.03-1.32); K (ABG) 3.5 mmol/L (3.3-5.1); NA (ABG) 136 mmol/L (135-145); TOTAL HEMOGLOBIN 11.4 G/dl (14.0-17.9)
[2018-11-28 10:45] LABS: ABG BASE EXCESS -1.5 mmol/L (-2.0-3.0); ABG HCO3 23.6 mmol/L (22.0-26.0); ABG OXYGEN SATURATION 99.1 % (95-98); ABG PCO2 41.2 mmHg (35.0-45.0); ABG PH 7.376 (7.350-7.450); ABG PO2 300.1 mmHg (60.0-100.0); CL (ABG) 103 mmol/L (99-107); FCOHb 0.3 % (0.5-1.5); FMetHb 0.3 % (0.3-1.12); FO2Hb 98.5 % (94-100); GLUCOSE (ABG) 139 mg/dl (70-104); IONIZED CA (ABG) 1.05 mmol/L (1.03-1.32); K (ABG) 4.8 mmol/L (3.3-5.1); NA (ABG) 137 mmol/L (135-145); TOTAL HEMOGLOBIN 11.9 G/dl (14.0-17.9)
[2018-11-28 11:16] LABS: ABG BASE EXCESS -3.7 mmol/L (-2.0-3.0); ABG OXYGEN SATURATION 99.1 % (95-98); ABG PCO2 42.2 mmHg (35.0-45.0); ABG PH 7.335 (7.350-7.450); ABG PO2 263.5 mmHg (60.0-100.0); CL (ABG) 103 mmol/L (99-107); FCOHb 0.3 % (0.5-1.5); FMetHb 0.2 % (0.3-1.12); FO2Hb 98.6 % (94-100); GLUCOSE (ABG) 181 mg/dl (70-104); IONIZED CA (ABG) 1.09 mmol/L (1.03-1.32); K (ABG) 4.6 mmol/L (3.3-5.1); NA (ABG) 137 mmol/L (135-145); TOTAL HEMOGLOBIN 12.1 G/dl (14.0-17.9)
[2018-11-28 11:31] LABS: ACT @ 1.70 U 310 SEC (193-297); ACT @ 2.84 U 435 SEC (260-420); BASELINE ACT 148 SEC (101-148); PATIENT WEIGHT 85.0k KG
[2018-11-28 11:45] LABS: ABG BASE EXCESS -0.9 mmol/L (-2.0-3.0); ABG HCO3 24.2 mmol/L (22.0-26.0); ABG OXYGEN SATURATION 98.8 % (95-98); ABG PCO2 41.8 mmHg (35.0-45.0); ABG PH 7.381 (7.350-7.450); ABG PO2 214.1 mmHg (60.0-100.0); CL (ABG) 102 mmol/L (99-107); FCOHb 0.2 % (0.5-1.5); FMetHb 0.2 % (0.3-1.12); FO2Hb 98.4 % (94-100); GLUCOSE (ABG) 224 mg/dl (70-104); IONIZED CA (ABG) 1.03 mmol/L (1.03-1.32); K (ABG) 4.7 mmol/L (3.3-5.1); NA (ABG) 136 mmol/L (135-145); TOTAL HEMOGLOBIN 11.2 G/dl (14.0-17.9)
[2018-11-28] MEDS ORDERED: heparin 1,000 units/ml 10ml inj ONE (12:00)
[2018-11-28] MEDS ORDERED: methylPREDNISolone sod. succ. 500mg inj ONE (12:00)
[2018-11-28] MEDS ORDERED: phenylephrine 10mg/ml inj. ONE (12:00)
[2018-11-28] MEDS ORDERED: MAGNESIUM SULFATE 4 MEQ/ML (5gm/10ml) injection ONE (12:00)
[2018-11-28] MEDS ORDERED: heparin 10,000 units/1 ML INJ ONE (12:00)
[2018-11-28] MEDS ORDERED: aminocaproic acid 250 MG/1 ML inj. ONE (12:00)
[2018-11-28] MEDS ORDERED: sodium bicarbonate (8.4%) 1 mEq/ml syringe ONE (12:00)
[2018-11-28] MEDS ORDERED: calcium chloride 100 MG/1 ML inj IV ONE (12:00)
[2018-11-28] MEDS ORDERED: albumin (human) 25% 100 ML IV solution IV ONE (12:00)
[2018-11-28] MEDS ORDERED: LIDOcaine 2% (20 mg/ml) 5ml cardiac syringe ONE (12:00)
[2018-11-28 12:11] LABS: ABG BASE EXCESS VENOUS -2.6 mmol/L; ABG HCO3 VENOUS 23.5 mmol/L; ABG PO2 VENOUS 45.4 mmHg; CL (ABG) 103 mmol/L (99-107); FCOHb VENOUS 0.6 %; FHHb VENOUS 21.6 %; FMetHb VENOUS 0.4 %; FO2Hb VENOUS 77.4 %; GLUCOSE (ABG) 220 mg/dl (70-104); IONIZED CA (ABG) 1.26 mmol/L (1.03-1.32); K (ABG) 4.2 mmol/L (3.3-5.1); NA (ABG) 138 mmol/L (135-145)
[2018-11-28 12:21] LABS: CL (ABG) 103 mmol/L (99-107); FCOHb VENOUS 0.8 %; FHHb VENOUS 23.8 %; FMetHb VENOUS 0.4 %; GLUCOSE (ABG) 170 mg/dl (70-104); IONIZED CA (ABG) 1.15 mmol/L (1.03-1.32); K (ABG) 3.8 mmol/L (3.3-5.1); NA (ABG) 139 mmol/L (135-145); TOTAL HEMOGLOBIN 14.4 G/dl (14.0-17.9)
[2018-11-28 12:56] LABS: ACTIVATED CLOTTING TIME 120 SEC (101-148)
[2018-11-28] MEDS ORDERED: niCARDipine-NS 40mg/200ml IVPB 200 ML IV PRN (13:04)
[2018-11-28] MEDS ORDERED: sodium chloride 0.45% 1,000 ML IV SCH (13:04)
[2018-11-28] MEDS ORDERED: DOPamine 400mg/D5W 250ml 250 ML IV PRN (13:04)
[2018-11-28] MEDS ORDERED: nitroGLYCERIN-Tridil 50MG/D5W 250 ML IV PRN (13:04)
[2018-11-28] MEDS ORDERED: ondansetron/PF 4mg/2ml inj IV PRN (13:05)
[2018-11-28] MEDS ORDERED: dextrose 50%-water 50ml dispensing syringe IV PRN (13:05)
[2018-11-28] MEDS ORDERED: Neutra Phos packet PO PRN (13:05)
[2018-11-28] MEDS ORDERED: insulin regular, human inj. 100 UNITS in normal saline 100ml IV soln 100 ML IV SCH ×2 (13:05)
[2018-11-28] MEDS ORDERED: potassium Cl 20 mEq SR tablet PO PRN (13:05)
[2018-11-28] MEDS ORDERED: acetaminophen 325mg tablet PO PRN (13:05)
[2018-11-28] MEDS ORDERED: metoclopramide 5 mg/ml inj IV PRN (13:05)
[2018-11-28] MEDS ORDERED: sodium phosphate inj. 30 MMOL in dextrose 5%-water 250 ML IV PRN (13:05)
[2018-11-28] MEDS ORDERED: sodium phosphate inj. 15 MMOL in dextrose 5%-water 150 ML IV PRN (13:05)
[2018-11-28] MEDS ORDERED: albumin (Human) 5% 250ml 250 ML IV PRN (13:05)
[2018-11-28] MEDS ORDERED: pantoprazole 40 MG vial IV ONE (13:05)
[2018-11-28] MEDS ORDERED: HYDROcodone/acetaminophen 10/325mg tab PO PRN (13:05)
[2018-11-28] MEDS ORDERED: magnesium 4gm in 100ml NS 100 ML IV PRN (13:05)
[2018-11-28] MEDS ORDERED: normal saline 250ml IV soln 250 ML IV PRN (13:05)
[2018-11-28] MEDS ORDERED: albumin (human) 25% 100ml IV 100 ML IV ONE (13:25)
--- NOTE | 2018-11-28 13:30 | NUR ---
Dr Hoover notified of EKG on 12 lead and current hemodynamics levophed ordered
[2018-11-28 13:31] LABS: ABG BASE EXCESS -6.1 mmol/L (-2.0-3.0); ABG HCO3 20.2 mmol/L (22.0-26.0); ABG OXYGEN SATURATION 97.2 % (95-98); ABG PCO2 (T) 42.6 mmHg (35.0-45.0); ABG PH (T) 7.293 (7.350-7.450); FCOHb 0.6 % (0.5-1.5); FMetHb 0.2 % (0.3-1.12); FO2Hb 96.4 % (94-100); MINUTE VOLUME 8 L/min; PEEP 5 cm H2O; RESPIRATORY RATE 14 b/min; RESPIRATORY RATE (OBSERVED) 14 b/min; TIDAL VOLUME 500 mL
[2018-11-28 13:36] LABS: BASOPHILS % (AUTO) 0.2 % (0-1); EOSINOPHILS % (AUTO) 0.2 % (0-6); HEMATOCRIT 38.7 % (42.0-52.0); HEMOGLOBIN 13.4 g/dl (14.0-17.9); LYMPHOCYTES # (AUTO) 1.8 X10'3 (1.1-4.8); LYMPHOCYTES % (AUTO) 9.3 % (21-51); MEAN CORPUSCULAR HEMOGLOBIN 33.7 PG (27.0-31.0); MEAN CORPUSCULAR HGB CONC 34.5 g/dL (33.0-36.5); MEAN CORPUSCULAR VOLUME 97.7 FL (78-98); MEAN PLATELET VOLUME 8.6 FL (7.4-10.4); MONOCYTES % (AUTO) 5.1 % (2-12); NEUTROPHILS # (AUTO) 16.4 X10'3 (1.8-7.7); NEUTROPHILS % (AUTO) 85.2 % (42-75); PLATELET COUNT 157 X10'3 (140-440); RED BLOOD COUNT 3.97 X10'6 (4.70-6.10); RED CELL DISTRIBUTION WIDTH 14.3 % (11.5-14.5); WHITE BLOOD COUNT 19.2 X10'3 (4.5-11.0)
[2018-11-28] MEDS ORDERED: NORepinephrine 8mg/ 250ml NS 250 ML IV ONE (13:37)
[2018-11-28 13:45] LABS: PARTIAL THROMBOPLASTIN TIME 37 SECONDS (22-32)
[2018-11-28 13:49] LABS: ALANINE AMINOTRANSFERASE 37 U/L (12-78); ALBUMIN 3.5 G/DL (3.4-5.0); ALBUMIN/GLOBULIN RATIO 1.4 (1.1-1.5); ALKALINE PHOSPHATASE 38 IU/L (46-116); ANION GAP 12 (8-16); ASPARTATE AMINO TRANSFERASE 30 U/L (10-37); BILIRUBIN,TOTAL 1.1 MG/DL (0.1-1.0); BLOOD UREA NITROGEN 11 MG/DL (7-18); BUN/CREATININE RATIO 9.6 (5.4-32.0); CALCIUM 9.5 MG/DL (8.5-10.1); CHLORIDE 109 MMOL/L (99-107); CREATININE 1.15 MG/DL (0.60-1.10); GLUCOSE 199 MG/DL (70-104); MAGNESIUM 2.1 MG/DL (1.5-2.4); PHOSPHORUS 2.6 MG/DL (2.3-4.5); SODIUM 144 MMOL/L (135-145); TOTAL CARBON DIOXIDE 23.1 MMOL/L (24-32); eGFR 63 ML/MIN
[2018-11-28] MEDS ORDERED: WATER IV ONE (13:55)
[2018-11-28] MEDS ORDERED: DEXTROSE 5% IV ONE (13:55)
[2018-11-28] MEDS ORDERED: METHYLENE BLUE IV ONE (13:55)
[2018-11-28] MEDS: morphine 4 MG/ML inj SYRINge IV PRN ×3 (14:00→19:37)
[2018-11-28] MEDS: potassium Cl 20mEq/100mL bag 100 ML IV PRN ×4 (14:23→23:01)
[2018-11-28] MEDS: DEXTROSE 5% IV SCH ×2 (14:37→15:07)
[2018-11-28] MEDS: WATER IV SCH ×2 (14:37→15:07)
[2018-11-28] MEDS: METHYLENE BLUE IV SCH ×2 (14:37→15:07)
[2018-11-28 15:41] LABS: ABG BASE EXCESS -4.8 mmol/L (-2.0-3.0); ABG OXYGEN SATURATION 95.6 % (95-98); ABG PCO2 (T) 31.5 mmHg (35.0-45.0); ABG PH (T) 7.398 (7.350-7.450); ABG PO2 (T) 79.3 mmHg (83-108); FMetHb 0.3 % (0.3-1.12); FO2Hb 95.3 % (94-100); MINUTE VOLUME 10 L/min; PEEP 5 cm H2O; RESPIRATORY RATE (OBSERVED) 16 b/min; TIDAL VOLUME 679 mL; TOTAL HEMOGLOBIN 12.5 G/dl (14.0-17.9)
[2018-11-28] MEDS: ezetimibe 10mg tablet PO SCH (16:25)
[2018-11-28] MEDS: ceFAZolin 1GM/D5W- ADD-VANTAGE 50 ML IV SCH (16:26)
[2018-11-28] MEDS: magnesium 2GM in 50ml NS 50 ML IV PRN ×3 (16:40→23:18)
[2018-11-28] MEDS ORDERED: insulin Lispro (HumaLOG) vial - multi-dose SQ SCH (18:00)
[2018-11-28] MEDS: insulin regular, human 100 UNIT in normal saline 100ml IV soln 100 ML IV SCH ×2 (19:10)
[2018-11-28 19:18] LABS: BASOPHILS # (AUTO) 0.1 X10'3 (0-0.2); BASOPHILS % (AUTO) 0.2 % (0-1); EOSINOPHILS % (AUTO) 0 % (0-6); HEMATOCRIT 36.4 % (42.0-52.0); HEMOGLOBIN 12.4 g/dl (14.0-17.9); LYMPHOCYTES # (AUTO) 1.3 X10'3 (1.1-4.8); LYMPHOCYTES % (AUTO) 6.3 % (21-51); MEAN CORPUSCULAR HEMOGLOBIN 32.9 PG (27.0-31.0); MEAN PLATELET VOLUME 8.3 FL (7.4-10.4); MONOCYTES # (AUTO) 1.3 X10'3 (0-0.9); MONOCYTES % (AUTO) 6.2 % (2-12); NEUTROPHILS # (AUTO) 17.9 X10'3 (1.8-7.7); NEUTROPHILS % (AUTO) 87.3 % (42-75); PLATELET COUNT 174 X10'3 (140-440); RED BLOOD COUNT 3.76 X10'6 (4.70-6.10); WHITE BLOOD COUNT 20.6 X10'3 (4.5-11.0)
[2018-11-28 19:27] LABS: ANION GAP 10 (8-16); BLOOD UREA NITROGEN 11 MG/DL (7-18); BUN/CREATININE RATIO 9.7 (5.4-32.0); CALCIUM 8.7 MG/DL (8.5-10.1); CHLORIDE 110 MMOL/L (99-107); CREATININE 1.13 MG/DL (0.60-1.10); GLUCOSE 136 MG/DL (70-104); MAGNESIUM 2.2 MG/DL (1.5-2.4); PHOSPHORUS 1.3 MG/DL (2.3-4.5); POTASSIUM 3.4 MMOL/L (3.5-5.1); SODIUM 144 MMOL/L (135-145); TOTAL CARBON DIOXIDE 23.9 MMOL/L (24-32); eGFR 65 ML/MIN
[2018-11-28] MEDS: docusate sod 100mg capsule PO SCH (20:00)
[2018-11-28] MEDS: gabapentin 300mg capsule PO SCH (20:21)
[2018-11-28] MEDS: colchicine 0.6mg tablet PO SCH (20:21)
[2018-11-28] MEDS: vancomycin/NS 1 GM ADD-VANTAGE 250 ML IV SCH (20:23)
[2018-11-28] MEDS: mupirocin 2% ointment 22GM NS SCH (20:23)
[2018-11-28 22:39] LABS: BASOPHILS % (AUTO) 0.3 % (0-1); EOSINOPHILS % (AUTO) 0 % (0-6); HEMOGLOBIN 11.6 g/dl (14.0-17.9); LYMPHOCYTES # (AUTO) 1.1 X10'3 (1.1-4.8); LYMPHOCYTES % (AUTO) 6.6 % (21-51); MEAN CORPUSCULAR HEMOGLOBIN 33.2 PG (27.0-31.0); MEAN CORPUSCULAR HGB CONC 34.1 g/dL (33.0-36.5); MEAN CORPUSCULAR VOLUME 97.3 FL (78-98); MEAN PLATELET VOLUME 8.4 FL (7.4-10.4); MONOCYTES # (AUTO) 0.6 X10'3 (0-0.9); MONOCYTES % (AUTO) 3.6 % (2-12); NEUTROPHILS # (AUTO) 14.7 X10'3 (1.8-7.7); NEUTROPHILS % (AUTO) 89.5 % (42-75); PLATELET COUNT 147 X10'3 (140-440); RED CELL DISTRIBUTION WIDTH 14.4 % (11.5-14.5); WHITE BLOOD COUNT 16.5 X10'3 (4.5-11.0)
[2018-11-28 22:54] LABS: ALANINE AMINOTRANSFERASE 35 U/L (12-78); ALBUMIN 3.7 G/DL (3.4-5.0); ALBUMIN/GLOBULIN RATIO 1.7 (1.1-1.5); ALKALINE PHOSPHATASE 29 IU/L (46-116); ANION GAP 14 (8-16); ASPARTATE AMINO TRANSFERASE 37 U/L (10-37); BILIRUBIN,TOTAL 1.4 MG/DL (0.1-1.0); BLOOD UREA NITROGEN 11 MG/DL (7-18); CHLORIDE 109 MMOL/L (99-107); CREATININE 0.92 MG/DL (0.60-1.10); GLUCOSE 172 MG/DL (70-104); POTASSIUM 3.8 MMOL/L (3.5-5.1); SODIUM 144 MMOL/L (135-145); TOTAL CARBON DIOXIDE 20.8 MMOL/L (24-32); TOTAL PROTEIN 5.9 G/DL (6.4-8.2); eGFR 82 ML/MIN
[2018-11-28 23:10] LABS: MAGNESIUM 2.1 MG/DL (1.5-2.4)
[2018-11-29] VITALS (24 sets, daily range): BP systolic 96–141; BP diastolic 52–80
[2018-11-29] MEDS: ceFAZolin 1GM/D5W- ADD-VANTAGE 50 ML IV SCH ×3 (00:12→15:29)
[2018-11-29] MEDS: potassium Cl 20mEq/100mL bag 100 ML IV PRN (00:13)
[2018-11-29] MEDS: morphine 4 MG/ML inj SYRINge IV PRN (00:26)
[2018-11-29 03:25] LABS: BASOPHILS % (AUTO) 0.2 % (0-1); EOSINOPHILS % (AUTO) 0 % (0-6); HEMATOCRIT 32.7 % (42.0-52.0); HEMOGLOBIN 11.3 g/dl (14.0-17.9); LYMPHOCYTES # (AUTO) 1.2 X10'3 (1.1-4.8); LYMPHOCYTES % (AUTO) 7.2 % (21-51); MEAN CORPUSCULAR HEMOGLOBIN 33.7 PG (27.0-31.0); MEAN CORPUSCULAR HGB CONC 34.5 g/dL (33.0-36.5); MEAN CORPUSCULAR VOLUME 97.5 FL (78-98); MEAN PLATELET VOLUME 8.6 FL (7.4-10.4); MONOCYTES # (AUTO) 1.4 X10'3 (0-0.9); MONOCYTES % (AUTO) 8.5 % (2-12); NEUTROPHILS # (AUTO) 13.7 X10'3 (1.8-7.7); NEUTROPHILS % (AUTO) 84.1 % (42-75); PLATELET COUNT 133 X10'3 (140-440); RED BLOOD COUNT 3.35 X10'6 (4.70-6.10); RED CELL DISTRIBUTION WIDTH 14.1 % (11.5-14.5); WHITE BLOOD COUNT 16.2 X10'3 (4.5-11.0)
[2018-11-29 03:34] LABS: PARTIAL THROMBOPLASTIN TIME 26 SECONDS (22-32)
[2018-11-29 03:35] LABS: ALANINE AMINOTRANSFERASE 34 U/L (12-78); ALBUMIN 3.6 G/DL (3.4-5.0); ALBUMIN/GLOBULIN RATIO 1.4 (1.1-1.5); ALKALINE PHOSPHATASE 31 IU/L (46-116); ANION GAP 9 (8-16); ASPARTATE AMINO TRANSFERASE 39 U/L (10-37); BILIRUBIN,TOTAL 1.2 MG/DL (0.1-1.0); BLOOD UREA NITROGEN 10 MG/DL (7-18); BUN/CREATININE RATIO 11.9 (5.4-32.0); CALCIUM 8.4 MG/DL (8.5-10.1); CHLORIDE 109 MMOL/L (99-107); CREATININE 0.84 MG/DL (0.60-1.10); GLUCOSE 159 MG/DL (70-104); MAGNESIUM 2.4 MG/DL (1.5-2.4); PHOSPHORUS 3.2 MG/DL (2.3-4.5); POTASSIUM 4.5 MMOL/L (3.5-5.1); SODIUM 141 MMOL/L (135-145); TOTAL PROTEIN 6.1 G/DL (6.4-8.2); eGFR > 90 ML/MIN
[2018-11-29] MEDS: magnesium 2GM in 50ml NS 50 ML IV PRN (03:50)
[2018-11-29] MEDS: HYDROcodone/acetaminophen 10/325mg tab PO PRN ×3 (05:04→18:41)
[2018-11-29] MEDS: gabapentin 300mg capsule PO SCH ×3 (06:22→20:03)
--- NOTE | 2018-11-29 06:38 | NUR ---
[facility]. I have received report from Fatoumata WELCH and had the opportunity to ask questions and assume patient care with Karen Perdomo RN. Addendum: 11/29/18 at 0639 by Elizabeth Tanner RN Amended: Links added.
[2018-11-29] MEDS: aspirin 325mg tablet, delayed-release (Ecotrin) PO SCH (07:23)
[2018-11-29] MEDS: docusate sod 100mg capsule PO SCH ×2 (07:23→19:41)
[2018-11-29] MEDS: mupirocin 2% ointment 22GM NS SCH ×2 (07:23→19:42)
[2018-11-29] MEDS: allopurinol 100mg tablet PO SCH ×2 (07:23→19:40)
[2018-11-29] MEDS: levoTHYROXINE 25mcg tablet PO SCH (07:25)
[2018-11-29] MEDS: ezetimibe 10mg tablet PO SCH (07:25)
[2018-11-29] MEDS: insulin glargine (Lantus) pen - multi-dose SQ SCH (07:31)
[2018-11-29] MEDS: metoprolol tartrate 12.5mg (1/2 tablet) PO SCH ×2 (08:00→19:41)
[2018-11-29] MEDS: vancomycin/NS 1 GM ADD-VANTAGE 250 ML IV SCH ×2 (08:07→19:42)
[2018-11-29] MEDS: insulin Lispro (HumaLOG) vial - multi-dose SQ SCH ×3 (08:23→19:53)
--- NOTE | 2018-11-29 08:32 | NUR ---
KRYSTINA Gold notified of "free air on CXR" that was reported by radiologist.
[2018-11-29] MEDS: ketorolac tromethamine 15mg/ml inj. IV SCH ×3 (08:47→19:22)
[2018-11-29] MEDS ORDERED: DOPamine 400mg/D5W 250ml 250 ML IV PRN (08:55)
[2018-11-29] MEDS ORDERED: nitroGLYCERIN-Tridil 50MG/D5W 250 ML IV PRN (08:56)
[2018-11-29] MEDS ORDERED: niCARDipine-NS 40mg/200ml IVPB 200 ML IV PRN (08:56)
--- NOTE | 2018-11-29 09:30 | NUR ---
Chinmay wrap/dressing to left arm dc'd this am by Miller FLAHERTY. Shreyas. BENCH CHEMIST, bruising noted but no s/s infection noted. Right arterial line and PA line dc'd without complications. at bedside.
--- NOTE | 2018-11-29 14:29 | NUR ---
at bedside. VSS. Pt. resting with eyes closed and even, unlabored respirations.
[2018-11-29] MEDS: insulin regular, human 100 UNIT in normal saline 100ml IV soln 100 ML IV SCH ×2 (15:20)
--- NOTE | 2018-11-29 19:45 | NUR ---
Pt declining walk this evening, states he is in too much pain, meds given as well as education regarding need for activity and pain control
[2018-11-29] MEDS: colchicine 0.6mg tablet PO SCH (20:03)
[2018-11-30] VITALS (19 sets, daily range): BP systolic 98–129; BP diastolic 59–84
[2018-11-30] MEDS: ceFAZolin 1GM/D5W- ADD-VANTAGE 50 ML IV SCH (00:29)
[2018-11-30] MEDS: ketorolac tromethamine 15mg/ml inj. IV SCH (01:07)
[2018-11-30] MEDS: HYDROcodone/acetaminophen 10/325mg tab PO PRN ×3 (01:07→18:20)
[2018-11-30 04:49] LABS: BASOPHILS % (AUTO) 0.1 % (0-1); EOSINOPHILS % (AUTO) 0 % (0-6); HEMATOCRIT 30.3 % (42.0-52.0); HEMOGLOBIN 10.2 g/dl (14.0-17.9); LYMPHOCYTES # (AUTO) 1.5 X10'3 (1.1-4.8); LYMPHOCYTES % (AUTO) 8.9 % (21-51); MEAN CORPUSCULAR HEMOGLOBIN 32.9 PG (27.0-31.0); MEAN CORPUSCULAR HGB CONC 33.6 g/dL (33.0-36.5); MEAN CORPUSCULAR VOLUME 98.1 FL (78-98); MEAN PLATELET VOLUME 8.9 FL (7.4-10.4); MONOCYTES # (AUTO) 1.6 X10'3 (0-0.9); MONOCYTES % (AUTO) 9.5 % (2-12); NEUTROPHILS # (AUTO) 13.6 X10'3 (1.8-7.7); NEUTROPHILS % (AUTO) 81.5 % (42-75); PLATELET COUNT 133 X10'3 (140-440); RED BLOOD COUNT 3.08 X10'6 (4.70-6.10); RED CELL DISTRIBUTION WIDTH 14.5 % (11.5-14.5); WHITE BLOOD COUNT 16.7 X10'3 (4.5-11.0)
[2018-11-30 05:03] LABS: ALBUMIN 3.2 G/DL (3.4-5.0); ANION GAP 7 (8-16); BLOOD UREA NITROGEN 18 MG/DL (7-18); BUN/CREATININE RATIO 16.8 (5.4-32.0); CALCIUM 8.8 MG/DL (8.5-10.1); CHLORIDE 108 MMOL/L (99-107); CREATININE 1.07 MG/DL (0.60-1.10); GLUCOSE 210 MG/DL (70-104); MAGNESIUM 2.5 MG/DL (1.5-2.4); POTASSIUM 4.8 MMOL/L (3.5-5.1); SODIUM 141 MMOL/L (135-145); TOTAL CARBON DIOXIDE 25.9 MMOL/L (24-32); eGFR 69 ML/MIN
--- NOTE | 2018-11-30 06:11 | NUR ---
Problems reprioritized. Patient report given, questions answered & plan of care reviewed with REBEKAH Arredondo.
[2018-11-30] MEDS: pantoprazole 40mg Tablet.DR PO SCH (07:02)
[2018-11-30] MEDS: levoTHYROXINE 25mcg tablet PO SCH (07:02)
[2018-11-30] MEDS: docusate sod 100mg capsule PO SCH ×2 (07:44→19:46)
[2018-11-30] MEDS: aspirin 325mg tablet, delayed-release (Ecotrin) PO SCH (07:44)
[2018-11-30] MEDS: ezetimibe 10mg tablet PO SCH (07:44)
[2018-11-30] MEDS: gabapentin 300mg capsule PO SCH ×2 (07:44→13:54)
[2018-11-30] MEDS: metoprolol tartrate 25mg tablet PO SCH ×2 (07:46→19:47)
[2018-11-30] MEDS: allopurinol 100mg tablet PO SCH ×2 (07:46→19:47)
[2018-11-30] MEDS: mupirocin 2% ointment 22GM NS SCH (07:47)
[2018-11-30] MEDS: insulin glargine (Lantus) pen - multi-dose SQ SCH (07:50)
[2018-11-30] MEDS ORDERED: magnesium 2GM in 50ml NS 50 ML IV PRN (08:20)
[2018-11-30] MEDS ORDERED: magnesium 4gm in 100ml NS 100 ML IV PRN (08:20)
[2018-11-30] MEDS ORDERED: potassium Cl 20 mEq SR tablet PO PRN (08:20)
[2018-11-30] MEDS ORDERED: potassium CL 10mEq/100ml bag 100 ML IV PRN ×2 (08:20)
[2018-11-30] MEDS ORDERED: magnesium citrate 296ml oral solution PO ONE (08:25)
[2018-11-30] MEDS ORDERED: amiodarone/D5 360MG/200ML BAG 200 ML IV ONE (08:55)
[2018-11-30] MEDS: amiodarone/D5 360MG/200ML BAG 200 ML IV SCH ×3 (09:11→20:58)
[2018-11-30] MEDS: insulin Lispro (HumaLOG) vial - multi-dose SQ SCH ×3 (09:17→19:40)
--- NOTE | 2018-11-30 11:31 | NUR ---
Reassessment: Pt PO 75-100% meals post-op meeting needs. LBM 11/27. Will continue to monitor. Recommendations: 1) return to CHO controlled/heart healthy diet per MD 2) Wt per rx Addendum: 11/30/18 at [address] Amended: Links added.
--- NOTE | 2018-11-30 12:00 | NUR ---
0800 Chest tubes and spaulding DC'd. 0842: Pt's rhythm changed to A-fib. Dr. Hoover notified, Amiodarone ordered and started. 1200: Pt voided 450 post cath dc. Remains in rated controlled afib.
--- NOTE | 2018-11-30 13:00 | NUR ---
Patient in room MED 316. I have received report from REBEKAH nolan and had the opportunity to ask questions and assume patient care.
--- NOTE | 2018-11-30 13:26 | NUR ---
pt transferred from [facility] to room 316 with all belongings
--- NOTE | 2018-11-30 16:00 | NUR ---
Orientee med administration & documentation: I have reviewed and agree with all interventions, assessments performed and documented by Nguyen WELCH.
[2018-11-30] MEDS: magnesium hydroxide 30ml (MOM) UD suspension PO PRN (18:22)
--- NOTE | 2018-11-30 18:59 | NUR ---
Problems reprioritized. Patient report given, questions answered & plan of care reviewed with REBEKAH Argueta and Navid.
--- NOTE | 2018-11-30 19:07 | NUR ---
Patient in room MED 316. I have received report from Nguyen WELCH and had the opportunity to ask questions and assume patient care.
[2018-11-30] MEDS: ticagrelor 90mg tablet PO SCH (19:47)
[2018-11-30] MEDS: potassium Cl 20 mEq SR tablet PO SCH (20:00)
[2018-11-30] MEDS: magnesium Cl slow-release 64mg tablet PO SCH (20:00)
[2018-11-30] MEDS: colchicine 0.6mg tablet PO SCH (20:37)
[2018-12-01] VITALS (9 sets, daily range): BP systolic 103–123; BP diastolic 68–89
[2018-12-01] MEDS: HYDROcodone/acetaminophen 10/325mg tab PO PRN ×2 (00:02→12:49)
[2018-12-01] MEDS: amiodarone/D5 360MG/200ML BAG 200 ML IV SCH (01:03)
[2018-12-01 01:49] LABS: BASOPHILS % (AUTO) 0.2 % (0-1); EOSINOPHILS # (AUTO) 0.1 X10'3 (0-0.9); EOSINOPHILS % (AUTO) 0.4 % (0-6); HEMATOCRIT 32.3 % (42.0-52.0); HEMOGLOBIN 10.9 g/dl (14.0-17.9); LYMPHOCYTES # (AUTO) 2.8 X10'3 (1.1-4.8); LYMPHOCYTES % (AUTO) 17.8 % (21-51); MEAN CORPUSCULAR HEMOGLOBIN 33.2 PG (27.0-31.0); MEAN CORPUSCULAR HGB CONC 33.7 g/dL (33.0-36.5); MEAN CORPUSCULAR VOLUME 98.5 FL (78-98); MEAN PLATELET VOLUME 8.7 FL (7.4-10.4); MONOCYTES # (AUTO) 1.9 X10'3 (0-0.9); MONOCYTES % (AUTO) 11.9 % (2-12); NEUTROPHILS # (AUTO) 10.9 X10'3 (1.8-7.7); NEUTROPHILS % (AUTO) 69.7 % (42-75); PLATELET COUNT 148 X10'3 (140-440); RED BLOOD COUNT 3.27 X10'6 (4.70-6.10); RED CELL DISTRIBUTION WIDTH 14.5 % (11.5-14.5); WHITE BLOOD COUNT 15.7 X10'3 (4.5-11.0)
[2018-12-01 01:59] LABS: ALBUMIN 3.4 G/DL (3.4-5.0); ANION GAP 8 (8-16); BLOOD UREA NITROGEN 23 MG/DL (7-18); CHLORIDE 105 MMOL/L (99-107); CREATININE 0.96 MG/DL (0.60-1.10); GLUCOSE 154 MG/DL (70-104); MAGNESIUM 2.4 MG/DL (1.5-2.4); POTASSIUM 3.9 MMOL/L (3.5-5.1); SODIUM 141 MMOL/L (135-145); TOTAL CARBON DIOXIDE 28.2 MMOL/L (24-32); eGFR 78 ML/MIN
--- NOTE | 2018-12-01 05:50 | NUR ---
I have reviewed and agree with Navid-RN's intervention, assessment and documentation.
--- NOTE | 2018-12-01 06:05 | NUR ---
Patient in room MED 316. I have received report from REBEKAH Shoemaker and had the opportunity to ask questions and assume patient care.
--- NOTE | 2018-12-01 06:10 | NUR ---
Patient began complaining of Chest pain, different from the incisional pain he has been having during the night, stated that it felt like it was burning across his chest and his upper abdomen. I contacted KRYSTINA Martell at 06:12 and let him know that we got a 12 leak EKG which showed no changes, and that his labs were normal and informed him that he would be getting a scheduled Chest x ray later on this morning, and that we gave him 2mg of morphine for the pain." Mr. Martell is aware of the situation and said he will see the patient later on in the morning.
--- NOTE | 2018-12-01 06:25 | NUR ---
Problems reprioritized. Patient report given, questions answered & plan of care reviewed with Shayy WELCH.
--- NOTE | 2018-12-01 06:30 | NUR ---
Noted that patient converted from atrial fibrillation to normal sinus rhythm at 0630.
[2018-12-01] MEDS: magnesium hydroxide 30ml (MOM) UD suspension PO PRN (07:14)
[2018-12-01] MEDS: ticagrelor 90mg tablet PO SCH ×2 (07:15→19:33)
[2018-12-01] MEDS: docusate sod 100mg capsule PO SCH ×2 (07:15→19:38)
[2018-12-01] MEDS: allopurinol 100mg tablet PO SCH ×2 (07:15→19:34)
[2018-12-01] MEDS: pantoprazole 40mg Tablet.DR PO SCH (07:15)
[2018-12-01] MEDS: potassium Cl 20 mEq SR tablet PO PRN ×3 (07:16→16:22)
[2018-12-01] MEDS: metoprolol tartrate 25mg tablet PO SCH ×2 (07:16→19:37)
[2018-12-01] MEDS: levoTHYROXINE 25mcg tablet PO SCH (07:16)
[2018-12-01] MEDS: aspirin 81mg tablet.DR PO SCH (07:16)
[2018-12-01] MEDS: ezetimibe 10mg tablet PO SCH (07:16)
[2018-12-01] MEDS: potassium Cl 20 mEq SR tablet PO SCH ×2 (07:16→19:33)
[2018-12-01] MEDS: magnesium Cl slow-release 64mg tablet PO PRN ×2 (07:17→16:22)
[2018-12-01] MEDS: magnesium Cl slow-release 64mg tablet PO SCH ×2 (07:17→19:33)
[2018-12-01] MEDS: K and/or MAG REPLACEMENT MC SCH (07:31)
[2018-12-01] MEDS: insulin glargine (Lantus) pen - multi-dose SQ SCH (07:43)
[2018-12-01] MEDS ORDERED: magnesium citrate 296ml oral solution PO ONE (08:20)
[2018-12-01] MEDS: amiodarone 200mg tablet PO SCH ×2 (08:46→19:34)
[2018-12-01] MEDS: insulin Lispro (HumaLOG) vial - multi-dose SQ SCH ×2 (12:51→19:42)
--- NOTE | 2018-12-01 17:45 | NUR ---
PATIENT BACK IN AFIB SINCE 1724; C/O CHEST PAIN CALLED YESIKA GOTTI TO INFORM HIM OF RHYTHM CHANGE. RECEIVED ORDER FOR AMIO BOLUS ONCE NOW. ALSO INFORMED YESIKA GOTTI THAT PATIENT IS COMPLAINING OF CHEST PAIN "DIFFERENT THAN HE'S EXPERIENCED SINCE HE'S BEEN HERE". RECEIVED ORDER FOR AN EKG.
[2018-12-01] MEDS ORDERED: amiodarone 150mg/dext, iso-os 100 ML IV ONE (17:50)
--- NOTE | 2018-12-01 18:00 | NUR ---
Patient in room MED 316. I have received report from Radha WELCH and had the opportunity to ask questions and assume patient care.
--- NOTE | 2018-12-01 18:20 | NUR ---
Dr. Morales at bedside. Bolus dose of amiodarone infused. HR in 80's. Patient stating pain has lessened. Still pale and feels "shaky". Will continue to monitor.
--- NOTE | 2018-12-01 18:24 | NUR ---
Problems reprioritized. Patient report given, questions answered & plan of care reviewed with REBEKAH Springer.
[2018-12-01] MEDS: colchicine 0.6mg tablet PO SCH (19:37)
[2018-12-01] MEDS ORDERED: potassium Cl 20 mEq SR tablet PO PRN (23:15)
[2018-12-01] MEDS ORDERED: magnesium 2GM in 50ml NS 50 ML IV PRN (23:15)
[2018-12-01] MEDS ORDERED: magnesium 4gm in 100ml NS 100 ML IV PRN (23:15)
[2018-12-01] MEDS ORDERED: potassium CL 10mEq/100ml bag 100 ML IV PRN (23:15)
[2018-12-02] MEDS: HYDROcodone/acetaminophen 10/325mg tab PO PRN ×2 (01:30→11:01)
[2018-12-02 02:00] VITALS: BP 110/75
--- NOTE | 2018-12-02 05:55 | NUR ---
Orienteer documentation: I have reviewed and agree with interventions, assessments performed and documented by REBEKAH Antony. Orienteer documentation: I have reviewed and agree with interventions, assessments performed and documented by REBEKAH Antony.
[2018-12-02 06:00] VITALS: BP 126/72
--- NOTE | 2018-12-02 06:15 | NUR ---
Patient in room MED 316. I have received report from Racheal RN and Estelita Antony "O" and had the opportunity to ask questions and assume patient care.
--- NOTE | 2018-12-02 06:15 | NUR ---
Problems reprioritized. Patient report given, questions answered & plan of care reviewed with Jana RN.
[2018-12-02 06:23] LABS: BASOPHILS % (AUTO) 0.4 % (0-1); EOSINOPHILS % (AUTO) 2.3 % (0-6); HEMOGLOBIN 10.5 g/dl (14.0-17.9); LYMPHOCYTES # (AUTO) 2.3 X10'3 (1.1-4.8); MONOCYTES # (AUTO) 1.3 X10'3 (0-0.9)
[2018-12-02 06:25] LABS: EOSINOPHILS # (AUTO) 0.3 X10'3 (0-0.9); HEMATOCRIT 30.4 % (42.0-52.0); MEAN CORPUSCULAR HEMOGLOBIN 33.9 PG (27.0-31.0); MEAN CORPUSCULAR HGB CONC 34.5 g/dL (33.0-36.5); MEAN CORPUSCULAR VOLUME 98.1 FL (78-98); MEAN PLATELET VOLUME 8.8 FL (7.4-10.4); MONOCYTES % (AUTO) 11.7 % (2-12); NEUTROPHILS # (AUTO) 7.1 X10'3 (1.8-7.7); NEUTROPHILS % (AUTO) 64.6 % (42-75); PLATELET COUNT 168 X10'3 (140-440); RED CELL DISTRIBUTION WIDTH 14.6 % (11.5-14.5)
[2018-12-02 06:31] LABS: ALBUMIN 3.2 G/DL (3.4-5.0); ANION GAP 9 (8-16); BLOOD UREA NITROGEN 20 MG/DL (7-18); BUN/CREATININE RATIO 20.8 (5.4-32.0); CALCIUM 8.4 MG/DL (8.5-10.1); CHLORIDE 105 MMOL/L (99-107); CREATININE 0.96 MG/DL (0.60-1.10); GLUCOSE 119 MG/DL (70-104); POTASSIUM 4.3 MMOL/L (3.5-5.1); SODIUM 140 MMOL/L (135-145); TOTAL CARBON DIOXIDE 25.6 MMOL/L (24-32); eGFR 78 ML/MIN
[2018-12-02] MEDS ORDERED: COL100C PO (07:01)
[2018-12-02] MEDS ORDERED: HYDR-4353 PO (07:01)
[2018-12-02] MEDS ORDERED: AMIO200T61 PO (07:01)
[2018-12-02] MEDS ORDERED: ASPI-1071 PO (07:01)
[2018-12-02] MEDS: pantoprazole 40mg Tablet.DR PO SCH (07:31)
[2018-12-02] MEDS: K and/or MAG REPLACEMENT MC SCH (08:00)
[2018-12-02] MEDS: amiodarone 200mg tablet PO SCH (08:18)
[2018-12-02] MEDS: ticagrelor 90mg tablet PO SCH (08:18)
[2018-12-02] MEDS: aspirin 81mg tablet.DR PO SCH (08:18)
[2018-12-02] MEDS: potassium Cl 20 mEq SR tablet PO SCH (08:18)
[2018-12-02] MEDS: ezetimibe 10mg tablet PO SCH (08:19)
[2018-12-02] MEDS: metoprolol tartrate 25mg tablet PO SCH (08:19)
[2018-12-02] MEDS: magnesium Cl slow-release 64mg tablet PO SCH (08:19)
[2018-12-02] MEDS: allopurinol 100mg tablet PO SCH (08:19)
[2018-12-02] MEDS: levoTHYROXINE 25mcg tablet PO SCH (08:19)
[2018-12-02] MEDS: insulin glargine (Lantus) pen - multi-dose SQ SCH (08:24)
[2018-12-02] MEDS: docusate sod 100mg capsule PO SCH (08:25)
[2018-12-02 11:15] VITALS: BP 109/73
--- NOTE | 2018-12-02 14:53 | NUR ---
Per MD, patient stable for discharge. All discharge instructions reviewed with patient and family; all questions answered. New medication order faxed to [facility] on [address]. PIV discontinues, tip intact, patient tolerated well, no complications. Telemetry discontinued. Pt wheeled to lobby by staff. Mode of transportation: private vehicle.
== END 2018-12-02 14:00 | disposition home health service (06) | DRG 233 ==
LOC: ER 18:18 → PCU 3S 22:18 → MED 3N 11-22 18:10 → CICU 2S 11-28 11:08 → MED 3N 11-30 13:25
PROVIDERS: ADMIT Internal Medicine; ATTEND Thoracic Surgery (Cardiothoracic Vascular Surgery)
PROC: 4A023N7 Measurement of Cardiac Sampling and Pressure, Left Heart, Percutaneous Approach (ICD-10-PCS; 2018-11-22)
PROC: B2111ZZ Fluoroscopy of Multiple Coronary Arteries using Low Osmolar Contrast (ICD-10-PCS; 2018-11-22)
PROC: B2151ZZ Fluoroscopy of Left Heart using Low Osmolar Contrast (ICD-10-PCS; 2018-11-22)
PROC: B3201ZZ Computerized Tomography (CT Scan) of Thoracic Aorta using Low Osmolar Contrast (ICD-10-PCS; 2018-11-23)
PROC: B32S1ZZ Computerized Tomography (CT Scan) of Right Pulmonary Artery using Low Osmolar Contrast (ICD-10-PCS; 2018-11-23)
PROC: B32T1ZZ Computerized Tomography (CT Scan) of Left Pulmonary Artery using Low Osmolar Contrast (ICD-10-PCS; 2018-11-23)
PROC: 02120AW Bypass Coronary Artery, Three Arteries from Aorta with Autologous Arterial Tissue, Open Approach (ICD-10-PCS; 2018-11-28)
PROC: 03BC3ZZ Excision of Left Radial Artery, Percutaneous Approach (ICD-10-PCS; 2018-11-28)
PROC: 0PB00ZZ Excision of Sternum, Open Approach (ICD-10-PCS; 2018-11-28)
PROC: 02HV33Z Insertion of Infusion Device into Superior Vena Cava, Percutaneous Approach (ICD-10-PCS; 2018-11-28)
PROC: 5A1221Z Performance of Cardiac Output, Continuous (ICD-10-PCS; 2018-11-28)
PROC: B24BZZ4 Ultrasonography of Heart with Aorta, Transesophageal (ICD-10-PCS; 2018-11-28)
PROC: 02100Z8 Bypass Coronary Artery, One Artery from Right Internal Mammary, Open Approach (ICD-10-PCS; principal; 2018-11-28 06:46)
DX: T82.855A Stenosis of coronary artery stent, initial encounter (principal); G93.41 Metabolic encephalopathy; I25.110 Atherosclerotic heart disease of native coronary artery with unstable angina pectoris; E11.9 Type 2 diabetes mellitus without complications; E78.00 Pure hypercholesterolemia, unspecified; E03.9 Hypothyroidism, unspecified; E78.01 Familial hypercholesterolemia; E78.5 Hyperlipidemia, unspecified; K80.20 Calculus of gallbladder without cholecystitis without obstruction; M10.9 Gout, unspecified; M19.90 Unspecified osteoarthritis, unspecified site; K76.0 Fatty (change of) liver, not elsewhere classified; N52.9 Male erectile dysfunction, unspecified; R21 Rash and other nonspecific skin eruption; I10 Essential (primary) hypertension; I48.0 Paroxysmal atrial fibrillation; Y83.1 Surgical operation with implant of artificial internal device as the cause of abnormal reaction of the patient, or of later complication, without mention of misadventure at the time of the procedure; K21.9 Gastro-esophageal reflux disease without esophagitis; K59.00 Constipation, unspecified; I25.2 Old myocardial infarction; Z82.49 Family history of ischemic heart disease and other diseases of the circulatory system; Z88.8 Allergy status to other drugs, medicaments and biological substances; Z98.61 Coronary angioplasty status; Z98.52 Vasectomy status; Y92.89 Other specified places as the place of occurrence of the external cause
CPT/HCPCS: 0232T; 93306; 93312; 93325; 93458; 96374; 96375; 99283; 36415; 36600; 71045; 71275; 80048; 80053; 80061; 80162; 82330; 82435; 82803; 82947; 82948; 83036; 83735; 84100; 84132; 84295; 84443; 84484; 85018; 85025; 85347; 85384; 85576; 85610; 85730; 86885; 86900; 86901; 86920; 87081; 88305; 88311; 93005; 93880; 93930; 93970; 94002; 94010; 94667; 94668; 94760; 97116; 97161; 97530; 99152; 99153; A4618; A4620; A6258; A6402; A6449; A7000; A7048; C1713; C1751; C1769; C1894; C9113; G0378; J0282; J0690; J1265; J1644; J1815; J1885; J2001; J2060; J2150; J2250; J2270; J2370; J2405; J2440; J2704; J2720; J2795; J2930; J3010; J3370; J3475; J3480; J3490; J7030; J7040; J7050; J7060; J7120; P9045; P9047; Q9967; Q9968

== ENCOUNTER 2020-06-05 10:06 | Day surgery (SDC) | payer MEDICARE ==
[2020-06-04 15:55] LABS: BASOPHILS # (AUTO) 0.1 X10'3 (0-0.2); BASOPHILS % (AUTO) 0.8 % (0-1); EOSINOPHILS # (AUTO) 0.2 X10'3 (0-0.9); EOSINOPHILS % (AUTO) 1.9 % (0-6); HEMATOCRIT 44.4 % (42.0-52.0); HEMOGLOBIN 15.1 g/dl (14.0-17.9); LYMPHOCYTES # (AUTO) 2.8 X10'3 (1.1-4.8); LYMPHOCYTES % (AUTO) 32.6 % (21-51); MEAN CORPUSCULAR HEMOGLOBIN 33.1 PG (27.0-31.0); MEAN CORPUSCULAR VOLUME 97.5 FL (78-98); MEAN PLATELET VOLUME 8.2 FL (7.4-10.4); MONOCYTES # (AUTO) 0.9 X10'3 (0-0.9); MONOCYTES % (AUTO) 10.6 % (2-12); NEUTROPHILS # (AUTO) 4.7 X10'3 (1.8-7.7); NEUTROPHILS % (AUTO) 54.1 % (42-75); PLATELET COUNT 270 X10'3 (140-440); RED BLOOD COUNT 4.55 X10'6 (4.70-6.10); RED CELL DISTRIBUTION WIDTH 14.1 % (11.5-14.5); WHITE BLOOD COUNT 8.7 X10'3 (4.5-11.0)
[2020-06-04 16:11] LABS: ANION GAP 14 (8-16); BLOOD UREA NITROGEN 24 MG/DL (7-18); BUN/CREATININE RATIO 26.1 (5.4-32.0); CALCIUM 9.3 MG/DL (8.5-10.1); CHLORIDE 106 MMOL/L (99-107); CREATININE 0.92 MG/DL (0.60-1.10); GLUCOSE 95 MG/DL (70-104); POTASSIUM 3.9 MMOL/L (3.5-5.1); SODIUM 144 MMOL/L (135-145); TOTAL CARBON DIOXIDE 24.2 MMOL/L (24-32); eGFR 82 ML/MIN
[2020-06-04 16:12] LABS: PARTIAL THROMBOPLASTIN TIME 26 SECONDS (22-32)
[~2020-06-05] VITALS: Ht 182.9 cm; Wt 90.0 kg
[2020-06-05] VITALS (11 sets, daily range): BP systolic 101–132; BP diastolic 77–91
[~2020-06-05 10:06] MED LIST changes: +AMIO200T61 PO; +ASPI-1071 PO; -ASPI-41 PO; +COL100C PO; -DIGO250T PO; -EZET10TA21 PO; +EZET10TA6 PO; +HYDR-4353 PO; -ISOS30TA9 PO; -LIDOcaine 2% (20 mg/ml) 5ml cardiac syringe ONE; -LOSA25TA96 PO; -MAGNESIUM SULFATE 4 MEQ/ML (5gm/10ml) injection ONE; -SOTA80TA73 PO; -[UNRECOGNIZED DRUG - CODE] PO; -albumin (human) 25% 100 ML IV solution IV ONE; -aminocaproic acid 250 MG/1 ML inj. ONE; -calcium chloride 100 MG/1 ML inj IV ONE; -heparin 1,000 units/ml 10ml inj ONE; -heparin 10,000 units/1 ML INJ ONE; -methylPREDNISolone sod. succ. 500mg inj ONE; -phenylephrine 10mg/ml inj. ONE; -potassium Cl 2 mEq/ml inj IV ONE; -sodium bicarbonate (8.4%) 1 mEq/ml syringe ONE
[2020-06-05] MEDS ORDERED: diphenhydrAMINE 25mg capsule PO PRN (10:30)
[2020-06-05] MEDS ORDERED: normal saline 1,000 ML IV SCH (10:30)
[2020-06-05] MEDS ORDERED: LORazepam 0.5 MG tablet PO PRN (10:30)
[2020-06-05] MEDS ORDERED: Vitamin D3 (10:39)
[2020-06-05] MEDS ORDERED: LEVO75CA5 PO (10:39)
[2020-06-05] MEDS ORDERED: ASPI-1053 PO (10:39)
[2020-06-05] MEDS ORDERED: FAMC500T23 PO (10:39)
[2020-06-05] MEDS ORDERED: EVOL140S2 SUBCUT (10:39)
[2020-06-05] MEDS ORDERED: METF-436 PO (10:39)
[2020-06-05] MEDS ORDERED: verapamil 2.5 mg/ml inj IV ONE (11:59)
[2020-06-05] MEDS ORDERED: nitroGLYCERIN-Tridil 50MG/D5W 250 ML IV ONE (11:59)
[2020-06-05] MEDS ORDERED: midazolam 1 mg/ML 2ml injection ONE (11:59)
[2020-06-05] MEDS ORDERED: iohexol 350MG/ML 100ml bottle IV ONE (12:00)
[2020-06-05] MEDS ORDERED: iohexol 350 MG/ML 50ML vial IV ONE (12:00)
[2020-06-05] MEDS ORDERED: LIDOcaine 1% (10mg/ml)w/preservative injection 20ml MDV ONE (12:00)
[2020-06-05] MEDS ORDERED: heparin 1,000unit/ml 10ml vial 10 ML ONE (12:00)
[2020-06-05] MEDS ORDERED: fentaNYL/PF 50MCG/1 ML 2ML syringe ONE (12:00)
[2020-06-05] MEDS ORDERED: iohexol 350 MG/1 ML 200ml bottle ONE (13:17)
[2020-06-05 14:12] LABS: ISTAT Hct ART 44 %PCV (42-52); ISTAT O2 SATURATION ARTERIAL 99 % (95-98); ISTAT SOURCE ART
[2020-06-05] MEDS ORDERED: HYDROcodone/acetaminophen 10/325mg tab PO PRN (14:40)
[2020-06-05] MEDS ORDERED: HYDROcodone/acetaminophen 5mg/325mg tablet PO PRN (14:40)
[2020-06-05 16:17] LABS: ISTAT Hct MIX 45 %PCV (42-52); ISTAT O2 SATURATION MIX VENOUS 73 % (60-80); ISTAT SOURCE CAP
== END 2020-06-05 20:10 | disposition home or self-care (01) ==
LOC: SSTAY O 10:06
PROVIDERS: ATTEND Internal Medicine Cardiovascular Disease
DX: I25.10 Atherosclerotic heart disease of native coronary artery without angina pectoris (principal); I25.82 Chronic total occlusion of coronary artery; E11.9 Type 2 diabetes mellitus without complications; I10 Essential (primary) hypertension; E78.5 Hyperlipidemia, unspecified; I48.0 Paroxysmal atrial fibrillation; Z95.5 Presence of coronary angioplasty implant and graft
CPT/HCPCS: 36415; 76937; 80048; 82803; 82948; 85014; 85025; 85610; 85730; 93461; 93567; 99152; 99153; C1760; C1769; C1894; J1644; J2001; J2250; J3010; J7030; Q0163; Q9967; A4620; A5120; A6258; C1751; J3490